=== PATIENT | male | born 1960 | race American Indian/Alaskan Native ===

== ENCOUNTER 2016-06-12 12:05 | Emergency (ER) | payer SELFPAY ==
[2016-06-12 12:14] VITALS: BP 139/87
--- NOTE | 2016-06-12 12:35 | EDM.PDOC ---
ED HPI Behavioral Health - General Chief Complaint: Drug or Alcohol Abuse Stated Complaint: DRINKING Time Seen by Provider: 06/12/16 12:26 Source: Reports: Patient Exam Limitations: Reports: No limitations - History of Present Illness INITIAL COMMENTS - FREE TEXT/NARRATIVE: pt was drinking heavily in the past week. He drank a liter last nite and just had a sip this am. Onset of Symptoms: Reports: gradual Duration of Symptoms: Reports: Day(s): - Related Data Allergies Allergy/AdvReac Type Severity Reaction Status Date / Time No Known Allergies Allergy Verified 04/27/16 14:21 Home Medications: Home Meds Metoprolol Succinate [Toprol XL] 75 mg PO DAILY 11/18/15 [History] NIFEdipine [Nifedipine ER] 30 mg PO DAILY 11/18/15 [History] Ibuprofen 400 mg PO ASDIRECTED 03/03/16 [History] Past Medical History Cardiovascular History: Reports: Hypertension Musculoskeletal History: Reports: Fracture Neurological History: Reports: Neuropathy, peripheral Psychiatric History: Reports: Addiction, Depression - Infectious Disease History Infectious Disease History: Reports: Chicken pox, Mumps - Past Surgical History HEENT Surgical History: Reports: Tonsillectomy, Other (see below) Other HEENT Surgeries/Procedures: tooth extraction Musculoskeletal Surgical History: Reports: Arthroscopic knee, Other (see below) Other Musculoskeletal Surgeries/Procedures:: left ankle surgery Social & Family History - Tobacco Use Smoking Status *Q: Unknown Ever Smoked Years of Tobacco use: 39 Packs/Tins Daily: 0.5 Used Tobacco, but Quit: No Second Hand Smoke Exposure: Yes - Caffeine Use Caffeine Use: Reports: Soda - Alcohol Use Days Per Week of Alcohol Use: 4 Number of Drinks Per Day: 10 Total Drinks Per Week: 40 - Recreational Drug Use Recreational Drug Use: No Drug Use in Last 12 Months: Yes Recreational Drug Type: Reports: Marijuana/Hashish, Methamphetamine Recreational Drug Use Frequency: Weekly ED ROS GENERAL - Review of Systems Review Of Systems: See Below Constitutional: Reports: no symptoms HEENT: Reports: No symptoms Respiratory: Reports: no symptoms Cardiovascular: Reports: No symptoms Endocrine: Reports: no symptoms GI/Abdominal: Reports: No symptoms, Nausea, Other (pt has been drinking heavily) : Reports: no symptoms Musculoskeletal: Reports: no symptoms Skin: Reports: no symptoms Neurological: Reports: no symptoms Psychiatric: Reports: Anxiety, Other (pt has lost alot of friends and family this past year. ) ED EXAM, BEHAVIORAL HEALTH - Physical Exam Exam: See Below Text/Narrative:: pt is not appearing intoxicated. He is able to give a good history. He has been drinking heavily and wants to go into treatment. Exam Limited By: No limitations General Appearance: alert, no apparent distress Ears: normal TMs Nose: normal inspection Throat/Mouth: Normal inspection Head: atraumatic Neck: normal inspection Respiratory/Chest: no respiratory distress Cardiovascular: regular rate, rhythm GI/Abdominal: soft, non tender Rectal (Males) Exam: Deferred Back Exam: normal inspection Neurological: alert, normal cognition Psychiatric: other (pt has had alot of losses and may be having paul depression. ) COURSE, BEHAVIORAL HEALTH COMP - Course Vital Signs: Last Vital Signs Temp 36.5 C 06/12/16 12:14 Pulse 114 H 06/12/16 12:14 Resp 16 06/12/16 12:14 BP 139/87 06/12/16 12:14 Pulse Ox 96 06/12/16 12:14 Orders, Labs, Meds: Active Orders 24 hr Category Date Time Status COMPREHENSIVE METABOLIC PN,CMP [CHEM] Urgent Lab 06/12/16 12:34 Received ETOH [ETHANOL BLOOD MEDICAL] [CHEM] Stat Lab 06/12/16 12:34 Received Laboratory Tests 06/12/16 06/12/16 06/12/16 Range/Units 12:34 13:09 13:09 WBC 9.2 (4.5-11.0) K/uL RBC 5.00 (4.30-5.90) M/uL Hgb 17.1 H (12.0-15.0) g/dL Hct 46.8 (40.0-54.0) % MCV 94 (80-98) fL MCH 34 H (27-31) pg MCHC 37 H (32-36) % Plt Count 189 (150-400) K/uL Neut % (Auto) 72 H (36-66) % Lymph % (Auto) 13 L (24-44) % [place] % (Auto) 14 H (2-6) % Eos % (Auto) 0 L (2-4) % Baso % (Auto) 1 (0-1) % Urine Color Yellow Urine Appearance Clear Urine pH 6.0 (4.5-8.0) Ur Specific [place] 1.015 (1.008-1.030) Urine Protein Negative (NEGATIVE) mg/dL Urine Glucose (UA) Normal (NEGATIVE) mg/dL Urine Ketones Negative (NEGATIVE) mg/dL Urine Occult Blood Negative (NEGATIVE) Urine Nitrite Negative (NEGAITVE) Urine Bilirubin Negative (NEGATIVE) Urine Urobilinogen Normal (NORMAL) mg/dL Ur Leukocyte Esterase Negative (NEGATIVE) Urine RBC 0-5 (0-5) Urine WBC Not seen (0-5) Ur Epithelial Cells Not seen Amorphous Sediment Rare Urine Bacteria Not seen Urine Mucus Rare Urine Opiates Screen Negative (NEGATIVE) Ur Oxycodone Screen Negative (NEGATIVE) Urine Methadone Screen Negative (NEGATIVE) Ur Propoxyphene Screen Negative (NEGATIVE) Ur Barbiturates Screen Negative (NEGATIVE) Ur Tricyclics Screen Negative (NEGATIVE) Ur Phencyclidine Scrn Negative (NEGATIVE) Ur Amphetamine Screen Negative (NEGATIVE) U Methamphetamines Scrn Negative (NEGATIVE) Urine MDMA Screen Negative (NEGATIVE) U Benzodiazepines Scrn Positive H (NEGATIVE) U Cocaine Metab Screen Negative (NEGATIVE) U Marijuana (THC) Screen Negative (NEGATIVE) Medications Discontinued Medications Generic Name Dose Route Start Last Admin Trade Name Freq PRN Reason Stop Dose Admin Lorazepam 1 mg 06/12/16 13:31 Ativan PO 06/12/16 13:32 ONETIME ONE Medical Clearance: 06/12/16 13:39 pt has a normal set of chemistries. His cbc is good. Liver enzymes are up mildly. Departure - Departure Time of Disposition: 13:40 Disposition: DC/Tfer to Psych Hosp/Unit 65 Condition: fair Clinical Impression: ETOH abuse Forms: ED Department Discharge Care Plan Goals: transfer to Detox at [place]. - My Orders Last 24 Hours: My Active Orders 06/12/16 12:34 COMPREHENSIVE METABOLIC PN,CMP [CHEM] Urgent ETOH [ETHANOL BLOOD MEDICAL] [CHEM] Stat - Assessment/Plan Last 24 Hours: My Active Orders 06/12/16 12:34 COMPREHENSIVE METABOLIC PN,CMP [CHEM] Urgent ETOH [ETHANOL BLOOD MEDICAL] [CHEM] Stat
[2016-06-12] MEDS ORDERED: LORazepam 1 MG Tab PO ONE (13:31)
== END 2016-06-12 14:20 ==
LOC: JP.ED 12:05
DX: F10.10 Alcohol abuse, uncomplicated (principal); I10 Essential (primary) hypertension; F32.9 Major depressive disorder, single episode, unspecified; Z98.890 Other specified postprocedural states
CPT/HCPCS: 36415; 80053; 80305; 81001; 85025; 99285; A9270; G0480; 99283

== ENCOUNTER 2016-10-19 01:59 | Emergency (ER) | payer SELFPAY ==
[2016-10-19 02:17] VITALS: BP 138/92
--- NOTE | 2016-10-19 03:43 | EDM.PDOC ---
ED HPI GENERAL MEDICAL PROBLEM - General Chief Complaint: Behavioral/Psych Stated Complaint: DETOX Time Seen by Provider: 10/19/16 03:40 Source of Information: Reports: Patient, RN Notes Reviewed History Limitations: Reports: No Limitations - History of Present Illness INITIAL COMMENTS - FREE TEXT/NARRATIVE: 56-year-old gentleman presents emergency department today requesting to go to [facility] facility has no complaints denies pain Pain Score (Numeric/FACES): 0 - Related Data Allergies Allergy/AdvReac Type Severity Reaction Status Date / Time No Known Allergies Allergy Verified 10/19/16 02:36 Home Meds: Home Meds Metoprolol Succinate [Toprol XL] 75 mg PO DAILY 11/18/15 [History] NIFEdipine [Nifedipine ER] 30 mg PO DAILY 11/18/15 [History] Ibuprofen 400 mg PO ASDIRECTED 03/03/16 [History] Past Medical History HEENT History: Reports: Impaired Vision Cardiovascular History: Reports: Hypertension Musculoskeletal History: Reports: Arthritis Neurological History: Reports: Neuropathy, Peripheral Psychiatric History: Reports: Addiction, Depression, Other (See Below) Other Psychiatric History: Alcohol addiction - Infectious Disease History Infectious Disease History: Reports: Chicken Pox, Mumps - Past Surgical History HEENT Surgical History: Reports: Tonsillectomy Musculoskeletal Surgical History: Reports: Arthroscopic Knee Social & Family History - Tobacco Use Smoking Status *Q: Current Every Day Smoker Years of Tobacco use: 14 Packs/Tins Daily: 0.5 Used Tobacco, but Quit: No Second Hand Smoke Exposure: Yes - Caffeine Use Caffeine Use: Reports: Coffee, Tea - Alcohol Use Days Per Week of Alcohol Use: 4 Number of Drinks Per Day: 10 Total Drinks Per Week: 40 - Recreational Drug Use Recreational Drug Use: No Drug Use in Last 12 Months: Yes Recreational Drug Type: Reports: Marijuana/Hashish, Methamphetamine Recreational Drug Use Frequency: Weekly ED ROS GENERAL - Review of Systems Review Of Systems: See Below Constitutional: Reports: No Symptoms Respiratory: Reports: No Symptoms Cardiovascular: Reports: No Symptoms GI/Abdominal: Reports: No Symptoms ED EXAM, GENERAL - Physical Exam Exam: See Below Exam Limited By: No Limitations General Appearance: Alert, WD/WN, No Apparent Distress Head: Atraumatic, Normocephalic Neck: Normal Inspection, Supple, Non-Tender, Full Range of Motion Respiratory/Chest: No Respiratory Distress, Lungs Clear, Normal Breath Sounds, No Accessory Muscle Use, Chest Non-Tender Cardiovascular: Regular Rate, Rhythm, No Murmur Course - Vital Signs Last Recorded V/S: Last Vital Signs Temp 98.1 F 10/19/16 02:15 Pulse 84 10/19/16 02:15 Resp 18 10/19/16 02:15 BP 138/92 H 10/19/16 02:15 Pulse Ox 99 10/19/16 02:15 - Orders/Labs/Meds Labs: Laboratory Tests 10/19/16 10/19/16 10/19/16 Range/Units 02:19 02:19 02:19 WBC 10.2 (4.5-11.0) K/uL RBC 5.24 (4.30-5.90) M/uL Hgb 17.4 H (12.0-15.0) g/dL Hct 48.6 (40.0-54.0) % MCV 93 (80-98) fL MCH 33 H (27-31) pg MCHC 36 (32-36) % Plt Count 292 (150-400) K/uL Neut % (Auto) 66 (36-66) % Lymph % (Auto) 21 L (24-44) % [place] % (Auto) 10 H (2-6) % Eos % (Auto) 1 L (2-4) % Baso % (Auto) 2 H (0-1) % Sodium 144 (140-148) mmol/L Potassium 3.6 (3.6-5.2) mmol/L Chloride 108 (100-108) mmol/L Carbon Dioxide 24 (21-32) mmol/L Anion Gap 11.8 (5.0-14.0) mmol/L BUN 11 (7-18) mg/dL Creatinine 1.2 (0.8-1.3) mg/dL Est Cr Clr Drug Dosing 65.71 mL/min Estimated GFR (MDRD) > 60 (>60) Glucose 112 H (74-106) mg/dL Calcium 8.5 (8.5-10.1) mg/dL Total Bilirubin 0.3 (0.2-1.0) mg/dL AST 15 (15-37) U/L ALT 25 (12-78) U/L Alkaline Phosphatase 97 (46-116) U/L Total Protein 7.7 (6.4-8.2) g/dL Albumin 3.6 (3.4-5.0) g/dL Globulin 4.1 H (2.3-3.5) g/dL Albumin/Globulin Ratio 0.9 L (1.2-2.2) Urine Color Urine Appearance Urine pH (4.5-8.0) Ur Specific [place] (1.008-1.030) Urine Protein (NEGATIVE) mg/dL Urine Glucose (UA) (NEGATIVE) mg/dL Urine Ketones (NEGATIVE) mg/dL Urine Occult Blood (NEGATIVE) Urine Nitrite (NEGAITVE) Urine Bilirubin (NEGATIVE) Urine Urobilinogen (NORMAL) mg/dL Ur Leukocyte Esterase (NEGATIVE) Urine RBC (0-5) Urine WBC (0-5) Ur Epithelial Cells Amorphous Sediment Urine Bacteria Urine Mucus Urine Opiates Screen (NEGATIVE) Ur Oxycodone Screen (NEGATIVE) Urine Methadone Screen (NEGATIVE) Ur Propoxyphene Screen (NEGATIVE) Ur Barbiturates Screen (NEGATIVE) Ur Tricyclics Screen (NEGATIVE) Ur Phencyclidine Scrn (NEGATIVE) Ur Amphetamine Screen (NEGATIVE) U Methamphetamines Scrn (NEGATIVE) Urine MDMA Screen (NEGATIVE) U Benzodiazepines Scrn (NEGATIVE) U Cocaine Metab Screen (NEGATIVE) U Marijuana (THC) Screen (NEGATIVE) Ethyl Alcohol 166 mg/dL 10/19/16 10/19/16 Range/Units 03:09 03:09 WBC (4.5-11.0) K/uL RBC (4.30-5.90) M/uL Hgb (12.0-15.0) g/dL Hct (40.0-54.0) % MCV (80-98) fL MCH (27-31) pg MCHC (32-36) % Plt Count (150-400) K/uL Neut % (Auto) (36-66) % Lymph % (Auto) (24-44) % [place] % (Auto) (2-6) % Eos % (Auto) (2-4) % Baso % (Auto) (0-1) % Sodium (140-148) mmol/L Potassium (3.6-5.2) mmol/L Chloride (100-108) mmol/L Carbon Dioxide (21-32) mmol/L Anion Gap (5.0-14.0) mmol/L BUN (7-18) mg/dL Creatinine (0.8-1.3) mg/dL Est Cr Clr Drug Dosing mL/min Estimated GFR (MDRD) (>60) Glucose (74-106) mg/dL Calcium (8.5-10.1) mg/dL Total Bilirubin (0.2-1.0) mg/dL AST (15-37) U/L ALT (12-78) U/L Alkaline Phosphatase (46-116) U/L Total Protein (6.4-8.2) g/dL Albumin (3.4-5.0) g/dL Globulin (2.3-3.5) g/dL Albumin/Globulin Ratio (1.2-2.2) Urine Color Yellow Urine Appearance Clear Urine pH 5.0 (4.5-8.0) Ur Specific [place] 1.020 (1.008-1.030) Urine Protein 30 H (NEGATIVE) mg/dL Urine Glucose (UA) Normal (NEGATIVE) mg/dL Urine Ketones Negative (NEGATIVE) mg/dL Urine Occult Blood Negative (NEGATIVE) Urine Nitrite Negative (NEGAITVE) Urine Bilirubin Negative (NEGATIVE) Urine Urobilinogen Normal (NORMAL) mg/dL Ur Leukocyte Esterase Negative (NEGATIVE) Urine RBC 0-5 (0-5) Urine WBC 0-5 (0-5) Ur Epithelial Cells Few Amorphous Sediment Not seen Urine Bacteria Few Urine Mucus Not seen Urine Opiates Screen Negative (NEGATIVE) Ur Oxycodone Screen Negative (NEGATIVE) Urine Methadone Screen Negative (NEGATIVE) Ur Propoxyphene Screen Negative (NEGATIVE) Ur Barbiturates Screen Negative (NEGATIVE) Ur Tricyclics Screen Negative (NEGATIVE) Ur Phencyclidine Scrn Negative (NEGATIVE) Ur Amphetamine Screen Negative (NEGATIVE) U Methamphetamines Scrn Negative (NEGATIVE) Urine MDMA Screen Negative (NEGATIVE) U Benzodiazepines Scrn Negative (NEGATIVE) U Cocaine Metab Screen Negative (NEGATIVE) U Marijuana (THC) Screen Negative (NEGATIVE) Ethyl Alcohol mg/dL Departure - Departure Time of Disposition: 03:42 ( perfect) Disposition: DC/Tfer to Inpt Rehab Fac 62 Condition: Fair Clinical Impression: Alcohol use disorder - Discharge Information Forms: ED Department Discharge Additional Instructions: Please refrain from alcohol - Assessment/Plan Plan: Assessment Acuity = acute Site and laterality = alcohol intoxication Etiology = alcohol consumption Manifestations = none CBC, CMP within normal limits alcohol is 166 Location of injury = Home Lab values = [lists important lab values] Plan We'll contact [facility] and they can pick him up for further evaluation and detoxification Patient was in agreement with the plan all questions were answered, they were instructed to return to the emergency department or call for worsening symptoms. This note was dictated using [employer] voice recognition software please call with any questions.
== END 2016-10-19 04:34 ==
LOC: JP.ED 01:59
DX: F10.10 Alcohol abuse, uncomplicated (principal); H54.7 Unspecified visual loss; F17.210 Nicotine dependence, cigarettes, uncomplicated; I10 Essential (primary) hypertension; M19.90 Unspecified osteoarthritis, unspecified site; Z79.899 Other long term (current) drug therapy; Z98.890 Other specified postprocedural states
CPT/HCPCS: 36415; 80053; 80305; 81001; 85025; 99285; G0480; 99284

== ENCOUNTER 2017-03-24 10:05 | Emergency (ER) | payer SELFPAY ==
[2017-03-24] MEDS ORDERED: NIFEdipine 30 MG Tab.ER PO ONE (10:22)
--- NOTE | 2017-03-24 10:37 | EDM.PDOCBH ---
ED HPI GENERAL MEDICAL PROBLEM - General Chief Complaint: Drug or Alcohol Abuse Stated Complaint: MEDICAL [facility]IA [facility] Time Seen by Provider: 03/24/17 10:15 Source of Information: Reports: Patient, EMS History Limitations: Reports: No Limitations - History of Present Illness INITIAL COMMENTS - FREE TEXT/NARRATIVE: 56-year-old male with chronic alcoholism arrives by ambulance wanting to go to detox. He's been drinking for several days, drank this morning and thought he might of taken an extra metoprolol. He felt like he was going into "withdrawals " this morning so drank some vodka. The detox center does have a bed available, the patient called himself and they sent him in here for medical clearance. He has not had any emesis, fever, shortness of breath or chest pain. Onset: Unknown/Unsure Severity: Mild - Related Data Allergies Allergy/AdvReac Type Severity Reaction Status Date / Time No Known Allergies Allergy Verified 03/24/17 10:17 Home Meds: Home Meds Metoprolol Succinate [Toprol XL] 75 mg PO DAILY 11/18/15 [History] NIFEdipine [Nifedipine ER] 30 mg PO DAILY 11/18/15 [History] Ibuprofen 400 mg PO ASDIRECTED 03/03/16 [History] Past Medical History HEENT History: Reports: Impaired Vision Cardiovascular History: Reports: Hypertension Musculoskeletal History: Reports: Arthritis, Fracture Neurological History: Reports: Neuropathy, Peripheral Psychiatric History: Reports: Addiction, Depression Other Psychiatric History: Alcohol addiction - Infectious Disease History Infectious Disease History: Reports: Chicken Pox, Mumps - Past Surgical History HEENT Surgical History: Reports: Tonsillectomy Musculoskeletal Surgical History: Reports: Arthroscopic Knee, ORIF, Other (See Below) Other Musculoskeletal Surgeries/Procedures:: ORIF left ankle Social & Family History - Tobacco Use Smoking Status *Q: Heavy Tobacco Smoker Years of Tobacco use: 43 Packs/Tins Daily: 1 Used Tobacco, but Quit: No Second Hand Smoke Exposure: Yes - Caffeine Use Caffeine Use: Reports: Coffee, Tea - Alcohol Use Days Per Week of Alcohol Use: 4 Number of Drinks Per Day: 8 Total Drinks Per Week: 32 - Recreational Drug Use Recreational Drug Use: No Drug Use in Last 12 Months: Yes Recreational Drug Type: Reports: Marijuana/Hashish, Methamphetamine Recreational Drug Use Frequency: Weekly ED ROS GENERAL - Review of Systems Review Of Systems: See Below Constitutional: Reports: Malaise. Denies: Fever, Chills Respiratory: Denies: Shortness of Breath Cardiovascular: Denies: Chest Pain GI/Abdominal: Denies: Abdominal Pain, Nausea, Vomiting Skin: Reports: No Symptoms Neurological: Denies: Headache ED EXAM, BEHAVIORAL HEALTH - Physical Exam Exam: See Below Exam Limited By: No Limitations General Appearance: Alert, No Apparent Distress Eye Exam: Bilateral Eye: EOMI Respiratory/Chest: No Respiratory Distress, Lungs Clear Cardiovascular: Regular Rate, Rhythm GI/Abdominal: Non-Tender Extremities: No: Pedal Edema Neurological: Alert, Oriented x 3 Psychiatric: Alert, Normal Affect Skin Exam: Warm, Dry COURSE, BEHAVIORAL HEALTH COMP - Course Vital Signs: Last Vital Signs Temp 97.8 F 03/24/17 10:09 Pulse 72 03/24/17 11:10 Resp 16 03/24/17 11:10 BP 182/99 H 03/24/17 11:10 Pulse Ox 94 L 03/24/17 10:09 Orders, Labs, Meds: Laboratory Tests 03/24/17 03/24/17 03/24/17 Range/Units 10:30 10:30 10:30 WBC 9.3 (4.5-11.0) K/uL RBC 4.91 (4.30-5.90) M/uL Hgb 16.1 H (12.0-15.0) g/dL Hct 45.2 (40.0-54.0) % MCV 92 (80-98) fL MCH 33 H (27-31) pg MCHC 36 (32-36) % Plt Count 228 (150-400) K/uL Neut % (Auto) 81 H (36-66) % Lymph % (Auto) 10 L (24-44) % [place] % (Auto) 8 H (2-6) % Eos % (Auto) 0 L (2-4) % Baso % (Auto) 1 (0-1) % Sodium 145 (140-148) mmol/L Potassium 4.1 (3.6-5.2) mmol/L Chloride 107 (100-108) mmol/L Carbon Dioxide 25 (21-32) mmol/L Anion Gap 12.9 (5.0-14.0) mmol/L BUN 21 H D (7-18) mg/dL Creatinine 1.3 (0.8-1.3) mg/dL Est Cr Clr Drug Dosing 60.65 mL/min Estimated GFR (MDRD) 57 L (>60) Glucose 107 H (74-106) mg/dL Calcium 9.1 (8.5-10.1) mg/dL Ethyl Alcohol 95 mg/dL Medications Discontinued Medications Generic Name Dose Route Start Last Admin Trade Name Freq PRN Reason Stop Dose Admin Nifedipine 30 mg 03/24/17 10:22 03/24/17 10:46 Procardia Xl PO 03/24/17 10:23 30 mg ONETIME ONE Administration Re-Assessment/Re-Exam: CBC, BMP and EtOH were obtained. Blood pressure was elevated at 150/120, patient was given his nifedipine dose that he missed this morning. EtOH was 0.095, the rest of his labs are reassuring. Patient was discharged with transportation provided by [facility]. Departure - Departure Time of Disposition: 11:21 Disposition: DC/Tfer to Other 70 Condition: Fair Clinical Impression: Alcohol abuse - Discharge Information Instructions: Alcohol Use Disorder Referrals: PCP,None [Primary Care Provider] - Forms: ED Department Discharge Care Plan Goals: Patient will be transferred by private car to [facility] for detox, hopefully will continue treatment long-term.
[2017-03-24 11:21] VITALS: BP 182/99
== END 2017-03-24 11:50 | disposition other institution (70) ==
LOC: JP.ED 10:05
DX: F10.10 Alcohol abuse, uncomplicated (principal); F17.210 Nicotine dependence, cigarettes, uncomplicated; Z79.899 Other long term (current) drug therapy; Y90.0 Blood alcohol level of less than 20 mg/100 ml
CPT/HCPCS: 36415; 80048; 85025; 99284; A9270; G0480

== ENCOUNTER 2019-08-23 13:13 | Emergency (ER) | payer MEDICAID ==
[2019-08-23 13:15] VITALS: BP 154/104; PULSE 85
--- NOTE | 2019-08-23 13:49 | EDM.PDOCBH ---
ED HPI GENERAL MEDICAL PROBLEM - General Chief Complaint: Drug or Alcohol Abuse Stated Complaint: VIA AM Time Seen by Provider: 08/23/19 13:48 Source of Information: Reports: Patient History Limitations: Reports: No Limitations - History of Present Illness INITIAL COMMENTS - FREE TEXT/NARRATIVE: He has been having shakes and feels that he is going through alcohol withdrawal. The patient drinks daily. States because he had the shakes and he thought he was going through withdrawal he drank 4 x 16 ounce beers prior to arrival. Any history of seizure disorder or withdrawal seizures. States he has been through alcohol treatment and detoxification multiple times. He thinks he had blood in his stool a month ago but otherwise denies having any history of peptic ulcer disease or varices. Denies any history of hepatic disease. Onset: Today Duration: Chronic - Related Data Allergies Allergy/AdvReac Type Severity Reaction Status Date / Time No Known Allergies Allergy Verified 03/24/17 10:17 Home Meds: Home Meds Metoprolol Succinate [Toprol XL] 50 mg PO DAILY 11/18/15 [History] Ibuprofen 400 mg PO ASDIRECTED 03/03/16 [History] Clopidogrel [Plavix] 75 mg PO DAILY 08/23/19 [History] LORazepam [Ativan] 1 mg PO Q6H 2 Days #8 tab 08/23/19 [Rx] atorvaSTATin [Lipitor] 40 mg PO DAILY 08/23/19 [History] lisinopriL [Lisinopril] 40 mg PO DAILY 08/23/19 [History] Past Medical History HEENT History: Reports: Impaired Vision Cardiovascular History: Reports: Hypertension, [place] Musculoskeletal History: Reports: Arthritis, Fracture Neurological History: Reports: Neuropathy, Peripheral Psychiatric History: Reports: Addiction, Depression Other Psychiatric History: Alcohol addiction - Infectious Disease History Infectious Disease History: Reports: Chicken Pox, Mumps - Past Surgical History HEENT Surgical History: Reports: Tonsillectomy Musculoskeletal Surgical History: Reports: Arthroscopic Knee, ORIF, Other (See Below) Other Musculoskeletal Surgeries/Procedures:: ORIF left ankle Social & Family History - Caffeine Use Caffeine Use: Reports: Coffee, Tea - Alcohol Use Alcohol Use History: Yes Alcohol Use Comment: He was evaluated in the emergency department in [facility] 08/19/2019 after being found lying by the side of the road. At that time he had a blood pressure of 58/46, blood alcohol level 281, and a lactic acid of 2.5. At that time the patient told emergency room staff he drinks " what ever he can get, all day ". Discharge diagnosis from that emergency department stay: Alcohol abuse, dehydration, hypotension due to hypovolemia, and chronic kidney disease. ED ROS GENERAL - Review of Systems Review Of Systems: See Below Constitutional: Reports: Malaise. Denies: Fever Respiratory: Denies: Shortness of Breath GI/Abdominal: Denies: Abdominal Pain Musculoskeletal: Reports: No Symptoms Neurological: Reports: Tremors Hematologic/Lymphatic: Reports: No Symptoms ED EXAM, BEHAVIORAL HEALTH - Physical Exam Exam: See Below Exam Limited By: Altered Mental Status General Appearance: Alert, No Apparent Distress Ears: Normal External Exam Nose: Normal Inspection Throat/Mouth: Other (Dry Mucous membranes) Neck: Supple Respiratory/Chest: No Respiratory Distress, Lungs Clear Cardiovascular: Normal Peripheral Pulses, Regular Rate, Rhythm GI/Abdominal: Non-Tender, No Organomegaly, Distended Extremities: Normal Inspection Neurological: Alert, No Motor/Sensory Deficits EKG INTERPRETATION EKG Date: 08/23/19 Time: 13:55 Rhythm: NSR Rate (Beats/Min): 79 QRS: Wide ST-T: Normal Comparison: Other: COURSE, BEHAVIORAL HEALTH COMP - Course Vital Signs: Last Vital Signs Temp 36.2 C 08/23/19 13:17 Pulse 85 08/23/19 13:17 Resp 16 08/23/19 13:17 BP 154/104 H 08/23/19 13:17 Pulse Ox 94 L 08/23/19 13:17 Orders, Labs, Meds: Active Orders 24 hr Category Date Time Status EKG Documentation Completion [RC] ASDIRECTED Care 08/23/19 13:59 Active DRUG SCREEN, URINE [URCHEM] Urgent Lab 08/23/19 13:58 Ordered UA W/MICROSCOPIC [URIN] Urgent Lab 08/23/19 13:58 Ordered EKG 12 Lead [EK] Stat Ther 08/23/19 13:58 Ordered Laboratory Tests 08/23/19 08/23/19 08/23/19 Range/Units 14:06 14:06 14:06 WBC 5.6 (4.5-11.0) K/uL RBC 4.51 (4.30-5.90) M/uL Hgb 14.0 D (12.0-15.0) g/dL Hct 41.5 (40.0-54.0) % MCV 92 (80-98) fL MCH 31 (27-31) pg MCHC 34 (32-36) % Plt Count 224 (150-400) K/uL PT 10.5 (9.5-12.0) sec INR 0.97 (0.80-1.20) Sodium 143 (140-148) mmol/L Potassium 4.1 (3.6-5.2) mmol/L Chloride 107 (100-108) mmol/L Carbon Dioxide 24 (21-32) mmol/L Anion Gap 11.6 (5.0-14.0) mmol/L BUN 9 D (7-18) mg/dL Creatinine 1.1 (0.8-1.3) mg/dL Est Cr Clr Drug Dosing 69.09 mL/min Estimated GFR (MDRD) > 60 (>60) Glucose 95 (74-106) mg/dL Calcium 8.8 (8.5-10.1) mg/dL Total Bilirubin 0.5 D (0.2-1.0) mg/dL AST 45 H D (15-37) U/L ALT 65 D (12-78) U/L Alkaline Phosphatase 80 (46-116) U/L Troponin I < 0.017 (0.000-0.056) ng/mL Total Protein 7.1 (6.4-8.2) g/dL Albumin 3.9 (3.4-5.0) g/dL Globulin 3.2 (2.3-3.5) g/dL Albumin/Globulin Ratio 1.2 (1.2-2.2) Ethyl Alcohol mg/dL 08/23/19 Range/Units 14:06 WBC (4.5-11.0) K/uL RBC (4.30-5.90) M/uL Hgb (12.0-15.0) g/dL Hct (40.0-54.0) % MCV (80-98) fL MCH (27-31) pg MCHC (32-36) % Plt Count (150-400) K/uL PT (9.5-12.0) sec INR (0.80-1.20) Sodium (140-148) mmol/L Potassium (3.6-5.2) mmol/L Chloride (100-108) mmol/L Carbon Dioxide (21-32) mmol/L Anion Gap (5.0-14.0) mmol/L BUN (7-18) mg/dL Creatinine (0.8-1.3) mg/dL Est Cr Clr Drug Dosing mL/min Estimated GFR (MDRD) (>60) Glucose (74-106) mg/dL Calcium (8.5-10.1) mg/dL Total Bilirubin (0.2-1.0) mg/dL AST (15-37) U/L ALT (12-78) U/L Alkaline Phosphatase (46-116) U/L Troponin I (0.000-0.056) ng/mL Total Protein (6.4-8.2) g/dL Albumin (3.4-5.0) g/dL Globulin (2.3-3.5) g/dL Albumin/Globulin Ratio (1.2-2.2) Ethyl Alcohol 116 mg/dL Departure - Departure Time of Disposition: 15:07 Disposition: Home, Self-Care 01 Clinical Impression: Alcohol withdrawal syndrome - Discharge Information Prescriptions: LORazepam [Ativan] 1 mg PO Q6H 2 Days #8 tab Instructions: Alcohol Withdrawal Syndrome Referrals: PCP,None [Primary Care Provider] - Forms: ED Department Discharge Additional Instructions: Lyse Ativan every 6 hours as needed for tremors Sepsis Event Note - Evaluation Sepsis Screening Result: No Definite Risk - Focused Exam Vital Signs: Vital Signs Temp Pulse Resp BP Pulse Ox 08/23/19 13:17 36.2 C 85 16 154/104 H 94 L 08/23/19 13:14 36.2 C 85 16 154/104 H 94 L Date Exam was Performed: 08/23/19 Time Exam was Performed: 15:07 - My Orders Last 24 Hours: My Active Orders 08/23/19 13:58 DRUG SCREEN, URINE [URCHEM] Urgent UA W/MICROSCOPIC [URIN] Urgent EKG 12 Lead [EK] Stat 08/23/19 13:59 EKG Documentation Completion [RC] ASDIRECTED - Assessment/Plan Last 24 Hours: My Active Orders 08/23/19 13:58 DRUG SCREEN, URINE [URCHEM] Urgent UA W/MICROSCOPIC [URIN] Urgent EKG 12 Lead [EK] Stat 08/23/19 13:59 EKG Documentation Completion [RC] ASDIRECTED
== END 2019-08-23 15:17 | disposition home or self-care (01) ==
LOC: JP.ED 13:13
DX: F10.239 Alcohol dependence with withdrawal, unspecified (principal); Y90.5 Blood alcohol level of 100-119 mg/100 ml; I10 Essential (primary) hypertension; I25.2 Old myocardial infarction; M19.90 Unspecified osteoarthritis, unspecified site; Z79.899 Other long term (current) drug therapy; Z79.02 Long term (current) use of antithrombotics/antiplatelets
CPT/HCPCS: 36415; 80053; 80307; 84484; 85027; 85610; 93005; 99285-25

== ENCOUNTER 2019-09-02 12:26 | Emergency (ER) | payer MEDICAID ==
[2019-09-02 12:36] VITALS: BP 152/98; PULSE 87
--- NOTE | 2019-09-02 12:44 | EDM.PDOCBH ---
ED HPI GENERAL MEDICAL PROBLEM - General Chief Complaint: Drug or Alcohol Abuse Stated Complaint: BEEN DRINKING Time Seen by Provider: 09/02/19 12:30 Source of Information: Reports: Patient, EMS History Limitations: Reports: No Limitations - History of Present Illness INITIAL COMMENTS - FREE TEXT/NARRATIVE: 59-year-old male chronic alcoholic, has been to detox and treatment several times just in the last month, returns again after having his last drink just 1 hour ago. Comes in by ambulance because he thinks he is going through withdrawal, has anxiety and depression, and wants to be readmitted for detox. Denies any pain or vomiting. Onset: Unknown/Unsure Associated Symptoms: Reports: Malaise, Other (Feels shaky, depressed and anxious ) - Related Data Allergies Allergy/AdvReac Type Severity Reaction Status Date / Time No Known Allergies Allergy Verified 09/02/19 12:34 Home Meds: Home Meds Metoprolol Succinate [Toprol XL] 50 mg PO DAILY 11/18/15 [History] Ibuprofen 400 mg PO ASDIRECTED 03/03/16 [History] Clopidogrel [Plavix] 75 mg PO DAILY 08/23/19 [History] LORazepam [Ativan] 1 mg PO Q6H 2 Days #8 tab 08/23/19 [Rx] atorvaSTATin [Lipitor] 40 mg PO DAILY 08/23/19 [History] lisinopriL [Lisinopril] 40 mg PO DAILY 08/23/19 [History] Past Medical History HEENT History: Reports: Impaired Vision Cardiovascular History: Reports: Hypertension, [place] Musculoskeletal History: Reports: Arthritis, Fracture Neurological History: Reports: Neuropathy, Peripheral Psychiatric History: Reports: Addiction, Depression Other Psychiatric History: Alcohol addiction - Infectious Disease History Infectious Disease History: Reports: Chicken Pox, Mumps - Past Surgical History HEENT Surgical History: Reports: Tonsillectomy Cardiovascular Surgical History: Reports: None Neurological Surgical History: Reports: None Musculoskeletal Surgical History: Reports: Arthroscopic Knee, ORIF, Other (See Below) Other Musculoskeletal Surgeries/Procedures:: ORIF left ankle Social & Family History - Tobacco Use Smoking Status *Q: Current Every Day Smoker Years of Tobacco use: 46 Packs/Tins Daily: 1 - Caffeine Use Caffeine Use: Reports: Coffee, Soda, Tea - Alcohol Use Days Per Week of Alcohol Use: 7 Number of Drinks Per Day: 20 Total Drinks Per Week: 140 - Recreational Drug Use Recreational Drug Use: No ED ROS GENERAL - Review of Systems Review Of Systems: See Below Constitutional: Reports: Malaise. Denies: Fever, Chills Respiratory: Denies: Shortness of Breath Cardiovascular: Denies: Chest Pain GI/Abdominal: Denies: Abdominal Pain, Nausea, Vomiting Skin: Reports: No Symptoms Neurological: Reports: Tremors. Denies: Headache Psychiatric: Reports: Anxiety, Depression ED EXAM, BEHAVIORAL HEALTH - Physical Exam Exam: See Below Exam Limited By: No Limitations General Appearance: Alert, No Apparent Distress, Other (Does not appear to be overly intoxicated) Eye Exam: Bilateral Eye: EOMI (No jaundice) Head: Atraumatic Respiratory/Chest: No Respiratory Distress, Lungs Clear Cardiovascular: Regular Rate, Rhythm Extremities: Normal Inspection. No: Pedal Edema Neurological: Alert, Oriented x 3 Psychiatric: Depressed Mood, Flat Affect Skin Exam: Warm, Dry COURSE, BEHAVIORAL HEALTH COMP - Course Vital Signs: Last Vital Signs Temp 96.8 F L 09/02/19 12:32 Pulse 87 09/02/19 12:32 Resp 16 09/02/19 12:32 BP 152/98 H 09/02/19 12:32 Pulse Ox 96 09/02/19 12:32 Orders, Labs, Meds: Laboratory Tests 09/02/19 Range/Units 12:54 Ethyl Alcohol < 3 mg/dL Re-Assessment/Re-Exam: IV fluids were initiated by EMS, these will be continued. EtOH was drawn for baseline prior to transferring to [place]. EtOH is 0, patient is stable for detox Departure - Departure Time of Disposition: 13:39 Disposition: DC/Tfer to Other 70 Clinical Impression: Alcohol abuse - Discharge Information Instructions: Alcohol Use Disorder Referrals: PCP,None [Primary Care Provider] - Forms: ED Department Discharge Care Plan Goals: Patient will be transferred to [place] for admission for symptom control of alcohol withdrawal. Sepsis Event Note - Evaluation Sepsis Screening Result: No Definite Risk - Focused Exam Vital Signs: Vital Signs Temp Pulse Resp BP Pulse Ox 09/02/19 12:32 96.8 F L 87 16 152/98 H 96 09/02/19 12:26 96.9 F 85 16 152/98 H 97 Date Exam was Performed: 09/02/19 Time Exam was Performed: 15:20
== END 2019-09-02 13:39 | disposition other institution (70) ==
LOC: JP.ED 12:26
DX: F10.10 Alcohol abuse, uncomplicated (principal); F32.9 Major depressive disorder, single episode, unspecified; I10 Essential (primary) hypertension; I25.2 Old myocardial infarction; F17.210 Nicotine dependence, cigarettes, uncomplicated; Z79.02 Long term (current) use of antithrombotics/antiplatelets; Z79.899 Other long term (current) drug therapy; Y90.0 Blood alcohol level of less than 20 mg/100 ml
CPT/HCPCS: 36415; 80307; 99285

== ENCOUNTER 2019-10-10 10:59 | Emergency (ER) | payer MEDICAID ==
[2019-10-10] MEDS ORDERED: Sodium Chloride 0.9% 10 ML Syringe FLUSH PRN (11:06)
[2019-10-10] MEDS ORDERED: LORazepam 2 MG/ML SDV IVPUSH ONE (11:06)
[2019-10-10] MEDS ORDERED: MVI, Adult with Vitamin K 10 ML, Thiamine 200 MG, Folic Acid 1 MG, Magnesium Sulfate 2 ... IV ONE ×10 (11:06→11:45)
[2019-10-10] MEDS ORDERED: Ondansetron 4 MG/2 ML SDV IVPUSH ONE (11:06)
--- NOTE | 2019-10-10 11:09 | EDM.PDOCBH ---
ED HPI GENERAL MEDICAL PROBLEM - General Chief Complaint: Drug or Alcohol Abuse Stated Complaint: ETOH Time Seen by Provider: 10/10/19 11:03 Source of Information: Reports: Patient, RN Notes Reviewed History Limitations: Reports: Intoxication - History of Present Illness INITIAL COMMENTS - FREE TEXT/NARRATIVE: 59-year-old gentleman presents emergency department today requesting alcohol detoxification, last use alcohol this morning combination whiskey and beer he does admit to feeling anxious and nauseated - Related Data Allergies Allergy/AdvReac Type Severity Reaction Status Date / Time No Known Allergies Allergy Verified 10/10/19 11:11 Home Meds: Home Meds Metoprolol Succinate [Toprol XL] 50 mg PO DAILY 11/18/15 [History] Clopidogrel [Plavix] 75 mg PO DAILY 08/23/19 [History] atorvaSTATin [Lipitor] 40 mg PO DAILY 08/23/19 [History] lisinopriL [Lisinopril] 40 mg PO DAILY 08/23/19 [History] Past Medical History HEENT History: Reports: Impaired Vision Cardiovascular History: Reports: CAD, Hypertension, [place] Musculoskeletal History: Reports: Arthritis, Fracture Neurological History: Reports: Neuropathy, Peripheral Psychiatric History: Reports: Addiction, Depression Other Psychiatric History: Alcohol addiction - Infectious Disease History Infectious Disease History: Reports: Chicken Pox, Mumps - Past Surgical History HEENT Surgical History: Reports: Tonsillectomy Cardiovascular Surgical History: Reports: None Neurological Surgical History: Reports: None Musculoskeletal Surgical History: Reports: Arthroscopic Knee, ORIF, Other (See Below) Other Musculoskeletal Surgeries/Procedures:: ORIF left ankle Social & Family History - Caffeine Use Caffeine Use: Reports: Coffee, Soda, Tea ED ROS GENERAL - Review of Systems Review Of Systems: See Below Constitutional: Reports: No Symptoms HEENT: Reports: No Symptoms Respiratory: Reports: No Symptoms Cardiovascular: Reports: No Symptoms GI/Abdominal: Reports: Nausea Psychiatric: Reports: Anxiety ED EXAM, BEHAVIORAL HEALTH - Physical Exam Exam: See Below Exam Limited By: Intoxication General Appearance: Alert, WD/WN, No Apparent Distress Respiratory/Chest: No Respiratory Distress, Lungs Clear, Normal Breath Sounds, No Accessory Muscle Use, Chest Non-Tender Cardiovascular: Regular Rate, Rhythm, No Murmur GI/Abdominal: Soft, Non-Tender COURSE, BEHAVIORAL HEALTH COMP - Course Vital Signs: Last Vital Signs Temp 97.4 F 10/10/19 11:13 Pulse 74 10/10/19 11:53 Resp 12 10/10/19 11:53 BP 141/100 H 10/10/19 11:53 Pulse Ox 99 10/10/19 11:53 Orders, Labs, Meds: Active Orders 24 hr Category Date Time Status Peripheral IV Care [RC] . DIRECTED Care 10/10/19 11:07 Active MVI, Adult with Vitamin K [Infuvite Adult] 10 ml Med 10/10/19 11:45 Active Thiamine [Vitamin B-1] 200 mg Folic Acid 1 mg Magnesium Sulfate [Magnesium Sulfate 50%] 2 gm Dextrose 5%-Lactated Ringers 1,000 ml IV ONETIME Sodium Chloride 0.9% [Saline Flush] Med 10/10/19 11:06 Active 10 ml FLUSH ASDIRECTED PRN Peripheral IV Insertion Adult [OM.PC] Urgent Oth 10/10/19 11:06 Ordered Medication Orders Multivitamins/Minerals 10 ml/Thiamine HCl 200 mg/ Folic Acid 1 mg/ Magnesium Luz lfate 2 gm/ Dextrose/Lactated Ringer' s 1,016.2 mls @ 500 mls/hr IV ONETIME ONE Stop: 10/10/19 13:46 Last Admin: 10/10/19 11:51 Dose: 500 mls/hr Documented by: BRAD Sodium Chloride (Saline Flush) 10 ml FLUSH ASDIRECTED PRN PRN Reason: Keep Vein Open Last Admin: 10/10/19 11:31 Dose: 10 ml Documented by: BRAD Laboratory Tests 10/10/19 10/10/19 10/10/19 Range/Units 11:23 11:23 11:23 WBC 10.3 (4.5-11.0) K/uL RBC 4.63 (4.30-5.90) M/uL Hgb 14.9 (12.0-15.0) g/dL Hct 44.0 (40.0-54.0) % MCV 95 (80-98) fL MCH 32 H (27-31) pg MCHC 34 (32-36) % Plt Count 220 (150-400) K/uL Neut % (Auto) 83 H (36-66) % Lymph % (Auto) 8 L (24-44) % Knox % (Auto) 8 H (2-6) % Eos % (Auto) 0 L (2-4) % Baso % (Auto) 1 (0-1) % PT (9.5-12.0) sec INR (0.80-1.20) Sodium 148 (140-148) mmol/L Potassium 4.3 (3.6-5.2) mmol/L Chloride 111 H (100-108) mmol/L Carbon Dioxide 22 (21-32) mmol/L Anion Gap 19.3 H (5.0-14.0) mmol/L BUN 9 (7-18) mg/dL Creatinine 1.1 (0.8-1.3) mg/dL Est Cr Clr Drug Dosing 69.09 mL/min Estimated GFR (MDRD) > 60 (>60) Glucose 107 H (74-106) mg/dL Calcium 8.4 L (8.5-10.1) mg/dL Total Bilirubin 0.6 (0.2-1.0) mg/dL AST 36 (15-37) U/L ALT 44 (12-78) U/L Alkaline Phosphatase 89 (46-116) U/L Total Protein 7.4 (6.4-8.2) g/dL Albumin 3.9 (3.4-5.0) g/dL Globulin 3.5 (2.3-3.5) g/dL Albumin/Globulin Ratio 1.1 L (1.2-2.2) Urine Opiates Screen (NEGATIVE) Ur Oxycodone Screen (NEGATIVE) Urine Methadone Screen (NEGATIVE) Ur Propoxyphene Screen (NEGATIVE) Ur Barbiturates Screen (NEGATIVE) Ur Tricyclics Screen (NEGATIVE) Ur Phencyclidine Scrn (NEGATIVE) Ur Amphetamine Screen (NEGATIVE) U Methamphetamines Scrn (NEGATIVE) Urine MDMA Screen (NEGATIVE) U Benzodiazepines Scrn (NEGATIVE) U Cocaine Metab Screen (NEGATIVE) U Marijuana (THC) Screen (NEGATIVE) Ethyl Alcohol 4 mg/dL 10/10/19 10/10/19 Range/Units 11:23 11:26 WBC (4.5-11.0) K/uL RBC (4.30-5.90) M/uL Hgb (12.0-15.0) g/dL Hct (40.0-54.0) % MCV (80-98) fL MCH (27-31) pg MCHC (32-36) % Plt Count (150-400) K/uL Neut % (Auto) (36-66) % Lymph % (Auto) (24-44) % Knox % (Auto) (2-6) % Eos % (Auto) (2-4) % Baso % (Auto) (0-1) % PT 11.4 (9.5-12.0) sec INR 1.06 (0.80-1.20) Sodium (140-148) mmol/L Potassium (3.6-5.2) mmol/L Chloride (100-108) mmol/L Carbon Dioxide (21-32) mmol/L Anion Gap (5.0-14.0) mmol/L BUN (7-18) mg/dL Creatinine (0.8-1.3) mg/dL Est Cr Clr Drug Dosing mL/min Estimated GFR (MDRD) (>60) Glucose (74-106) mg/dL Calcium (8.5-10.1) mg/dL Total Bilirubin (0.2-1.0) mg/dL AST (15-37) U/L ALT (12-78) U/L Alkaline Phosphatase (46-116) U/L Total Protein (6.4-8.2) g/dL Albumin (3.4-5.0) g/dL Globulin (2.3-3.5) g/dL Albumin/Globulin Ratio (1.2-2.2) Urine Opiates Screen Negative (NEGATIVE) Ur Oxycodone Screen Negative (NEGATIVE) Urine Methadone Screen Negative (NEGATIVE) Ur Propoxyphene Screen Negative (NEGATIVE) Ur Barbiturates Screen Negative (NEGATIVE) Ur Tricyclics Screen Negative (NEGATIVE) Ur Phencyclidine Scrn Negative (NEGATIVE) Ur Amphetamine Screen Negative (NEGATIVE) U Methamphetamines Scrn Negative (NEGATIVE) Urine MDMA Screen Negative (NEGATIVE) U Benzodiazepines Scrn Negative (NEGATIVE) U Cocaine Metab Screen Negative (NEGATIVE) U Marijuana (THC) Screen Negative (NEGATIVE) Ethyl Alcohol mg/dL Medications Generic Name Dose Route Start Last Admin Trade Name Freq PRN Reason Stop Dose Admin Multivitamins/Minerals 10 ml/ 1,016.2 mls @ 500 mls/hr 10/10/19 11:45 10/10/19 11:51 Thiamine HCl 200 mg/ Folic IV 10/10/19 13:46 500 mls/hr Acid 1 mg/ Magnesium Sulfate 2 ONETIME ONE Administration gm/ Dextrose/Lactated Ringer' s Sodium Chloride 10 ml 10/10/19 11:06 10/10/19 11:31 Saline Flush FLUSH 10 ml ASDIRECTED PRN Administration Keep Vein Open Discontinued Medications Generic Name Dose Route Start Last Admin Trade Name Freq PRN Reason Stop Dose Admin Lorazepam 1 mg 10/10/19 11:06 10/10/19 11:33 Ativan IVPUSH 10/10/19 11:07 1 mg ONETIME ONE Administration Ondansetron HCl 4 mg 10/10/19 11:06 10/10/19 11:30 Zofran IVPUSH 10/10/19 11:07 4 mg ONETIME ONE Administration Departure - Departure Time of Disposition: 11:59 Disposition: DC/Tfer to Inpt Rehab Fac 62 Condition: Fair Clinical Impression: Alcohol abuse Alcohol withdrawal syndrome Qualifiers: Complication of substance-induced condition: uncomplicated Qualified Code(s): F10.230 - Alcohol dependence with withdrawal, uncomplicated - Discharge Information Instructions: Alcohol Use Disorder Referrals: PCP,None [Primary Care Provider] - Forms: ED Department Discharge Additional Instructions: Please report to [facility] for further treatment Sepsis Event Note (ED) - Focused Exam Vital Signs: Vital Signs Temp Pulse Resp BP Pulse Ox 10/10/19 11:53 74 12 141/100 H 99 10/10/19 11:13 97.4 F 72 14 164/119 H 96 10/10/19 11:00 97.4 F 72 14 164/119 H 96 - My Orders Last 24 Hours: My Active Orders 10/10/19 11:06 Sodium Chloride 0.9% [Saline Flush] 10 ml FLUSH ASDIRECTED PRN Peripheral IV Insertion Adult [OM.PC] Urgent 10/10/19 11:07 Peripheral IV Care [RC] . DIRECTED 10/10/19 11:45 MVI, Adult with Vitamin K [Infuvite Adult] 10 ml Thiamine [Vitamin B-1] 200 mg Folic Acid 1 mg Magnesium Sulfate [Magnesium Sulfate 50%] 2 gm Dextrose 5%- Lactated Ringers 1,000 ml IV ONETIME - Assessment/Plan Last 24 Hours: My Active Orders 10/10/19 11:06 Sodium Chloride 0.9% [Saline Flush] 10 ml FLUSH ASDIRECTED PRN Peripheral IV Insertion Adult [OM.PC] Urgent 10/10/19 11:07 Peripheral IV Care [RC] . DIRECTED 10/10/19 11:45 MVI, Adult with Vitamin K [Infuvite Adult] 10 ml Thiamine [Vitamin B-1] 200 mg Folic Acid 1 mg Magnesium Sulfate [Magnesium Sulfate 50%] 2 gm Dextrose 5%- Lactated Ringers 1,000 ml IV ONETIME Plan: Assessment Acuity = acute Site and laterality = alcohol abuse and intoxication Etiology = EtOH Manifestations = none Location of injury = Home Lab values = CBC, CMP, INR, urine drug screen, alcohol within normal limits Plan He was given a banana bag as well as Zofran and Ativan while in the emergency department [facility] did have a bed for him he will be transported via [facility] for detoxification This note was dictated using [employer] voice recognition software please call with any questions on syntax or grammar.
[2019-10-10 11:54] VITALS: PULSE 74
[2019-10-10 12:48] VITALS: BP 138/100
== END 2019-10-10 12:48 ==
LOC: JP.ED 10:59
DX: F10.230 Alcohol dependence with withdrawal, uncomplicated (principal); I25.10 Atherosclerotic heart disease of native coronary artery without angina pectoris; I10 Essential (primary) hypertension; I25.2 Old myocardial infarction; M19.90 Unspecified osteoarthritis, unspecified site; F32.9 Major depressive disorder, single episode, unspecified; G62.9 Polyneuropathy, unspecified; Z79.02 Long term (current) use of antithrombotics/antiplatelets; Z79.899 Other long term (current) drug therapy
CPT/HCPCS: 36415; 80053; 80305; 80307; 85025; 85610; 96374; 96375; 99285; J2060; J2405; J3411; J3475; J7121; J3490

== ENCOUNTER 2019-11-19 07:13 | Emergency (ER) | payer MEDICAID ==
--- NOTE | 2019-11-19 07:54 | EDM.PDOCBH ---
ED HPI GENERAL MEDICAL PROBLEM - General Chief Complaint: Drug or Alcohol Abuse Stated Complaint: [facility] Time Seen by Provider: 11/19/19 07:30 Source of Information: Reports: Patient, EMS History Limitations: Reports: Intoxication - History of Present Illness INITIAL COMMENTS - FREE TEXT/NARRATIVE: 59-year-old male with longstanding alcoholism, numerous visits to the emergency room for "detox". He has been drinking for the past 5 days, and this morning he felt more hung over than usual and realized he had been chain smoking cigarettes for several days and became anxious so called the ambulance to go to detox. His last drink was midnight last night. He did not take his morning medications. Onset: Unknown/Unsure Associated Symptoms: Reports: Headaches, Malaise. Denies: Confusion, Chest Pain, Cough, Shortness of Breath - Related Data Allergies Allergy/AdvReac Type Severity Reaction Status Date / Time No Known Allergies Allergy Verified 11/19/19 07:24 Home Meds: Home Meds Metoprolol Succinate [Toprol XL] 50 mg PO DAILY 11/18/15 [History] Clopidogrel [Plavix] 75 mg PO DAILY 08/23/19 [History] atorvaSTATin [Lipitor] 40 mg PO DAILY 08/23/19 [History] lisinopriL [Lisinopril] 40 mg PO DAILY 08/23/19 [History] Gabapentin [Neurontin] 1 tab PO DAILY 11/19/19 [History] Past Medical History HEENT History: Reports: Impaired Vision Cardiovascular History: Reports: CAD, Hypertension, [place] Musculoskeletal History: Reports: Arthritis, Fracture Neurological History: Reports: Neuropathy, Peripheral Psychiatric History: Reports: Addiction, Depression Other Psychiatric History: Alcohol addiction - Infectious Disease History Infectious Disease History: Reports: Chicken Pox, Mumps - Past Surgical History HEENT Surgical History: Reports: Tonsillectomy Cardiovascular Surgical History: Reports: None Neurological Surgical History: Reports: None Musculoskeletal Surgical History: Reports: Arthroscopic Knee, ORIF, Other (See Below) Other Musculoskeletal Surgeries/Procedures:: ORIF left ankle Social & Family History - Tobacco Use Smoking Status *Q: Current Every Day Smoker Years of Tobacco use: 40 Packs/Tins Daily: 0.5 - Caffeine Use Caffeine Use: Reports: Coffee, Soda, Tea - Recreational Drug Use Recreational Drug Type: Reports: Marijuana/Hashish, Methamphetamine Recreational Drug Use Frequency: Rarely ED ROS GENERAL - Review of Systems Review Of Systems: See Below Constitutional: Reports: Malaise. Denies: Fever, Chills HEENT: Denies: Vision Change Respiratory: Reports: Cough (Has a smoker's cough). Denies: Hemoptysis Cardiovascular: Denies: Chest Pain, Palpitations GI/Abdominal: Denies: Abdominal Pain, Vomiting Skin: Reports: No Symptoms Neurological: Reports: Headache ED EXAM, BEHAVIORAL HEALTH - Physical Exam Exam: See Below Exam Limited By: No Limitations General Appearance: Alert, No Apparent Distress Eye Exam: Bilateral Eye: Normal Inspection (No jaundice, adequate hydration) Head: Atraumatic Respiratory/Chest: No Respiratory Distress, Lungs Clear Cardiovascular: Regular Rate, Rhythm. No: Extra Beats GI/Abdominal: Non-Tender Extremities: No: Pedal Edema Neurological: Alert, Normal Mood/Affect Psychiatric: Alert, Normal Affect Skin Exam: Warm, Dry COURSE, BEHAVIORAL HEALTH COMP - Course Vital Signs: Last Vital Signs Temp 97.4 F 11/19/19 07:33 Pulse 75 11/19/19 11:17 Resp 16 11/19/19 07:33 BP 177/103 H 11/19/19 11:17 Pulse Ox 97 11/19/19 07:33 Orders, Labs, Meds: Laboratory Tests 11/19/19 11/19/19 11/19/19 Range/Units 07:45 07:45 07:45 WBC 5.6 (4.5-11.0) K/uL RBC 4.85 (4.30-5.90) M/uL Hgb 15.5 H (12.0-15.0) g/dL Hct 44.9 (40.0-54.0) % MCV 93 (80-98) fL MCH 32 H (27-31) pg MCHC 35 (32-36) % Plt Count 249 (150-400) K/uL Neut % (Auto) 72 H (36-66) % Lymph % (Auto) 16 L (24-44) % Mcdowell % (Auto) 11 H (2-6) % Eos % (Auto) 1 L (2-4) % Baso % (Auto) 1 (0-1) % Sodium 147 (140-148) mmol/L Potassium 4.1 (3.6-5.2) mmol/L Chloride 108 (100-108) mmol/L Carbon Dioxide 25 (21-32) mmol/L Anion Gap 13.6 (5.0-14.0) mmol/L BUN 11 (7-18) mg/dL Creatinine 1.3 (0.8-1.3) mg/dL Est Cr Clr Drug Dosing 58.46 mL/min Estimated GFR (MDRD) 56 L (>60) Glucose 117 H (74-106) mg/dL Calcium 8.1 L (8.5-10.1) mg/dL Urine Opiates Screen (NEGATIVE) Ur Oxycodone Screen (NEGATIVE) Urine Methadone Screen (NEGATIVE) Ur Propoxyphene Screen (NEGATIVE) Ur Barbiturates Screen (NEGATIVE) Ur Tricyclics Screen (NEGATIVE) Ur Phencyclidine Scrn (NEGATIVE) Ur Amphetamine Screen (NEGATIVE) U Methamphetamines Scrn (NEGATIVE) Urine MDMA Screen (NEGATIVE) U Benzodiazepines Scrn (NEGATIVE) U Cocaine Metab Screen (NEGATIVE) U Marijuana (THC) Screen (NEGATIVE) Ethyl Alcohol 109 mg/dL 11/19/19 Range/Units 08:05 WBC (4.5-11.0) K/uL RBC (4.30-5.90) M/uL Hgb (12.0-15.0) g/dL Hct (40.0-54.0) % MCV (80-98) fL MCH (27-31) pg MCHC (32-36) % Plt Count (150-400) K/uL Neut % (Auto) (36-66) % Lymph % (Auto) (24-44) % Mcdowell % (Auto) (2-6) % Eos % (Auto) (2-4) % Baso % (Auto) (0-1) % Sodium (140-148) mmol/L Potassium (3.6-5.2) mmol/L Chloride (100-108) mmol/L Carbon Dioxide (21-32) mmol/L Anion Gap (5.0-14.0) mmol/L BUN (7-18) mg/dL Creatinine (0.8-1.3) mg/dL Est Cr Clr Drug Dosing mL/min Estimated GFR (MDRD) (>60) Glucose (74-106) mg/dL Calcium (8.5-10.1) mg/dL Urine Opiates Screen Negative (NEGATIVE) Ur Oxycodone Screen Negative (NEGATIVE) Urine Methadone Screen Negative (NEGATIVE) Ur Propoxyphene Screen Negative (NEGATIVE) Ur Barbiturates Screen Negative (NEGATIVE) Ur Tricyclics Screen Negative (NEGATIVE) Ur Phencyclidine Scrn Negative (NEGATIVE) Ur Amphetamine Screen Negative (NEGATIVE) U Methamphetamines Scrn Negative (NEGATIVE) Urine MDMA Screen Negative (NEGATIVE) U Benzodiazepines Scrn Negative (NEGATIVE) U Cocaine Metab Screen Negative (NEGATIVE) U Marijuana (THC) Screen Presumptive positive H (NEGATIVE) Ethyl Alcohol mg/dL Medications Discontinued Medications Generic Name Dose Route Start Last Admin Trade Name Mateo PRN Reason Stop Dose Admin Labetalol HCl 20 mg 11/19/19 09:30 11/19/19 09:25 Normodyne IVPUSH 11/19/19 09:31 20 mg ONETIME ONE Administration Protocol Lisinopril 40 mg 11/19/19 11:30 11/19/19 11:16 Prinivil PO 11/19/19 11:31 40 mg ONETIME ONE Administration Lorazepam 1 mg 11/19/19 10:44 11/19/19 10:51 Ativan IVPUSH 11/19/19 10:45 1 mg ONETIME ONE Administration Metoprolol Tartrate 50 mg 11/19/19 10:59 11/19/19 11:17 Lopressor PO 11/19/19 11:00 50 mg ONETIME ONE Administration Re-Assessment/Re-Exam: Patient is hypertensive but just took his antihypertensive medications prior to calling the ambulance and that may have been the first day in a few days he has taken his meds. EtOH, CBC, BMP were drawn and IV fluids started by EMS were continued. Detox will be contacted when labs return. EtOH is 0.108, rest of his labs reassuring and patient stable to be transferred to detox. Melody Heck was contacted Prior to excepting the patient Melody Heck requested a urine drug screen as well as additional treatment for his hypertension. The drug screen was ordered and he was given 20 mg of IV labetalol. Transportation was delayed an additional hour, patient was given 50 mg of Toprol and 40 mg of the lisinopril his usual medications. Departure - Departure Time of Disposition: 12:36 Disposition: DC/Tfer to Other 70 Clinical Impression: Alcohol abuse Alcohol intoxication Qualifiers: Complication of substance-induced condition: uncomplicated Qualified Code(s): F10.920 - Alcohol use, unspecified with intoxication, uncomplicated - Discharge Information Instructions: Alcohol Intoxication, [id number] Referrals: PCP,None [Primary Care Provider] - Forms: ED Department Discharge Care Plan Goals: Participate in detox and treatment for alcoholism as recommended and avoid furt her alcohol use in the future. Sepsis Event Note (ED) - Evaluation Sepsis Screening Result: No Definite Risk - Focused Exam Vital Signs: Vital Signs Temp Pulse Pulse Resp BP BP Pulse Ox 11/19/19 11:17 75 177/103 H 11/19/19 11:16 177/103 H 11/19/19 10:40 80 194/129 H 11/19/19 09:50 77 172/107 H 11/19/19 07:33 97.4 F 93 16 194/137 H 97 11/19/19 07:30 88 189/127 H 11/19/19 07:25 97.4 F 93 16 194/137 H 97
[2019-11-19] MEDS ORDERED: Labetalol 100 MG/20 ML MDV IVPUSH ONE (09:02)
[2019-11-19] MEDS ORDERED: Labetalol 20 MG/4 ML Syringe IVPUSH ONE (09:30)
[2019-11-19] MEDS ORDERED: LORazepam 2 MG/ML SDV IVPUSH ONE (10:44)
[2019-11-19] MEDS ORDERED: Metoprolol Tartrate 50 MG Tab PO ONE (10:59)
[2019-11-19] MEDS ORDERED: Lisinopril 10 MG Tab PO ONE (10:59)
[2019-11-19 11:18] VITALS: BP 177/103; PULSE 75
[2019-11-19] MEDS ORDERED: Lisinopril 20 MG Tab PO ONE (11:30)
== END 2019-11-19 12:37 | disposition other institution (70) ==
LOC: JP.ED 07:13
DX: F10.120 Alcohol abuse with intoxication, uncomplicated (principal); Y90.5 Blood alcohol level of 100-119 mg/100 ml; I25.10 Atherosclerotic heart disease of native coronary artery without angina pectoris; I10 Essential (primary) hypertension; G62.9 Polyneuropathy, unspecified; F17.210 Nicotine dependence, cigarettes, uncomplicated; Z79.02 Long term (current) use of antithrombotics/antiplatelets; Z79.899 Other long term (current) drug therapy; I25.2 Old myocardial infarction
CPT/HCPCS: 36415; 80048; 80305; 80307; 85025; 96374; 96375; 99285; A9270; J2060; J3490

== ENCOUNTER 2020-03-26 12:40 | Emergency (ER) | payer MEDICAID ==
--- NOTE | 2020-03-26 12:49 | EDM.PDOCBH ---
ED HPI GENERAL MEDICAL PROBLEM - General Chief Complaint: Drug or Alcohol Abuse Stated Complaint: [facility] Time Seen by Provider: 03/26/20 12:40 Source of Information: Reports: Patient History Limitations: Reports: No Limitations - History of Present Illness INITIAL COMMENTS - FREE TEXT/NARRATIVE: 59-year-old male who is been drinking daily for 40+ days wants to go to detox. No other complaints. This is his fifth requested detox in the last 7 months. Onset: Unknown/Unsure (Has been drinking for weeks) Associated Symptoms: Reports: Nausea/Vomiting - Related Data Allergies Allergy/AdvReac Type Severity Reaction Status Date / Time No Known Allergies Allergy Verified 11/19/19 07:24 Home Meds: Home Meds Metoprolol Succinate [Toprol XL] 50 mg PO DAILY 11/18/15 [History] Clopidogrel [Plavix] 75 mg PO DAILY 08/23/19 [History] atorvaSTATin [Lipitor] 40 mg PO DAILY 08/23/19 [History] lisinopriL [Lisinopril] 40 mg PO DAILY 08/23/19 [History] Gabapentin [Neurontin] 1 tab PO TID 11/19/19 [History] Past Medical History HEENT History: Reports: Impaired Vision Cardiovascular History: Reports: CAD, Hypertension, [place] Musculoskeletal History: Reports: Arthritis, Fracture Neurological History: Reports: Neuropathy, Peripheral Psychiatric History: Reports: Addiction, Depression Other Psychiatric History: Alcohol addiction - Infectious Disease History Infectious Disease History: Reports: Chicken Pox, Mumps - Past Surgical History HEENT Surgical History: Reports: Tonsillectomy Cardiovascular Surgical History: Reports: None Neurological Surgical History: Reports: None Musculoskeletal Surgical History: Reports: Arthroscopic Knee, ORIF, Other (See Below) Other Musculoskeletal Surgeries/Procedures:: ORIF left ankle Social & Family History - Caffeine Use Caffeine Use: Reports: Coffee, Soda, Tea ED ROS GENERAL - Review of Systems Review Of Systems: See Below Constitutional: Reports: Malaise, Decreased Appetite. Denies: Fever, Chills HEENT: Reports: No Symptoms Respiratory: Denies: Shortness of Breath Cardiovascular: Denies: Chest Pain GI/Abdominal: Reports: Nausea, Vomiting. Denies: Abdominal Pain Skin: Reports: No Symptoms Neurological: Reports: Dizziness, Weakness. Denies: Headache ED EXAM, BEHAVIORAL HEALTH - Physical Exam Exam: See Below Exam Limited By: No Limitations General Appearance: Alert, No Apparent Distress Eye Exam: Bilateral Eye: Normal Inspection (No jaundice) Head: Atraumatic Respiratory/Chest: No Respiratory Distress, Lungs Clear, Other (Longitudinal incision over the sternum from recent surgery) Cardiovascular: Regular Rate, Rhythm Neurological: Alert, Normal Mood/Affect Psychiatric: Restless Skin Exam: Warm, Dry COURSE, BEHAVIORAL HEALTH COMP - Course Vital Signs: Last Vital Signs Temp 97.9 F 03/26/20 13:00 Pulse 91 03/26/20 13:00 Resp 16 03/26/20 13:00 BP 133/109 H 03/26/20 13:00 Pulse Ox 96 03/26/20 13:00 Orders, Labs, Meds: Laboratory Tests 03/26/20 03/26/20 Range/Units 12:53 13:41 Urine Opiates Screen Negative (NEGATIVE) Ur Oxycodone Screen Negative (NEGATIVE) Urine Methadone Screen Negative (NEGATIVE) Ur Propoxyphene Screen Negative (NEGATIVE) Ur Barbiturates Screen Negative (NEGATIVE) Ur Tricyclics Screen Negative (NEGATIVE) Ur Phencyclidine Scrn Negative (NEGATIVE) Ur Amphetamine Screen Negative (NEGATIVE) U Methamphetamines Scrn Presumptive positive H (NEGATIVE) Urine MDMA Screen Negative (NEGATIVE) U Benzodiazepines Scrn Negative (NEGATIVE) U Cocaine Metab Screen Negative (NEGATIVE) U Marijuana (THC) Screen Presumptive positive H (NEGATIVE) Ethyl Alcohol 30 mg/dL Re-Assessment/Re-Exam: EtOH is 0.04, urine tox screen is positive for methamphetamine. He is stable for detox. Departure - Departure Time of Disposition: 16:25 Disposition: DC/Tfer to Other 70 Clinical Impression: Methamphetamine abuse Alcohol addiction Qualifiers: Substance use status: uncomplicated Qualified Code(s): F10.20 - Alcohol dependence, uncomplicated - Discharge Information Instructions: Alcohol Abuse and Dependence Information, Adult, Methamphetamines Use Disorder Referrals: PCP,None [Primary Care Provider] - Forms: ED Department Discharge Care Plan Goals: Patient be transferred to [facility] for initiation of treatment for polysubstance abuse. Sepsis Event Note (ED) - Focused Exam Vital Signs: Vital Signs Temp Pulse Resp BP Pulse Ox 03/26/20 13:00 97.9 F 91 16 133/109 H 96
[2020-03-26 13:01] VITALS: BP 133/109; PULSE 91
== END 2020-03-26 16:23 | disposition other institution (70) ==
LOC: JP.ED 12:40
DX: F10.20 Alcohol dependence, uncomplicated (principal); F15.10 Other stimulant abuse, uncomplicated; Y90.1 Blood alcohol level of 20-39 mg/100 ml; I25.10 Atherosclerotic heart disease of native coronary artery without angina pectoris; I10 Essential (primary) hypertension; I25.2 Old myocardial infarction; G62.9 Polyneuropathy, unspecified; F32.9 Major depressive disorder, single episode, unspecified; Z79.02 Long term (current) use of antithrombotics/antiplatelets; Z79.899 Other long term (current) drug therapy
CPT/HCPCS: 36415; 80305-QW; 80307; 99285

== ENCOUNTER 2020-06-20 15:50 | Emergency (ER) | payer MEDICAID ==
[~2020-06-20 15:50] MED LIST: Gabapentin 300 MG Cap PO SCH; Lisinopril 20 MG Tab PO SCH; Metoprolol Succinate 50 MG Tab.ER PO SCH; Warfarin 2.5 MG Tab PO SCH
[2020-06-20] MEDS ORDERED: Metoprolol Succinate 50 MG Tab.ER PO ONE (16:13)
[2020-06-20] MEDS ORDERED: Lisinopril 10 MG Tab PO ONE (16:13)
[2020-06-20] MEDS ORDERED: Sodium Chloride 0.9% 1,000 ML IV SCH (16:45)
--- NOTE | 2020-06-20 16:49 | EDM.PDOCBH ---
ED HPI GENERAL MEDICAL PROBLEM - General Chief Complaint: Drug or Alcohol Abuse Stated Complaint: MEDICAL VIA [facility] Time Seen by Provider: 06/20/20 15:55 Source of Information: Reports: Patient History Limitations: Reports: No Limitations - History of Present Illness INITIAL COMMENTS - FREE TEXT/NARRATIVE: pt drank until about 3 am last nite. He states he is hypersensitive to the etoh and gets drunk with very little etoh. Onset: Gradual Duration: Hour(s): Location: Reports: Generalized, Other (pt is out odf his meds and his bp is elevated. ) Associated Symptoms: Reports: Other (pt has not been eating and drinking normally. ) - Related Data Allergies Allergy/AdvReac Type Severity Reaction Status Date / Time No Known Allergies Allergy Verified 06/20/20 16:06 Home Meds: Home Meds Metoprolol Succinate [Toprol XL] 50 mg PO DAILY 11/18/15 [History] atorvaSTATin [Lipitor] 40 mg PO DAILY 08/23/19 [History] lisinopriL [Lisinopril] 40 mg PO DAILY 08/23/19 [History] Gabapentin [Neurontin] 1 tab PO TID 11/19/19 [History] Warfarin Sodium [Jantoven] 2.5 mg PO DAILY 06/20/20 [History] Past Medical History HEENT History: Reports: Impaired Vision Cardiovascular History: Reports: CAD, Hypertension, [place], Stents Musculoskeletal History: Reports: Arthritis, Fracture Neurological History: Reports: Neuropathy, Peripheral Psychiatric History: Reports: Addiction, Depression Other Psychiatric History: Alcohol addiction Endocrine/Metabolic History: Reports: Obesity/BMI 30+ Hematologic History: Reports: Anticoagulation Therapy - Infectious Disease History Infectious Disease History: Reports: Chicken Pox, Mumps - Past Surgical History Head Surgeries/Procedures: Reports: None HEENT Surgical History: Reports: Tonsillectomy Other HEENT Surgeries/Procedures: tooth extraction Cardiovascular Surgical History: Reports: None Endocrine Surgical History: Reports: None Neurological Surgical History: Reports: None Musculoskeletal Surgical History: Reports: Arthroscopic Knee, ORIF, Other (See Below) Other Musculoskeletal Surgeries/Procedures:: ORIF left ankle Dermatological Surgical History: Reports: None Social & Family History - Family History Family Medical History: No Pertinent Family History - Tobacco Use Tobacco Use Status *Q: Current Every Day Tobacco User Years of Tobacco use: 45 Packs/Tins Daily: 1 Used Tobacco, but Quit: No Second Hand Smoke Exposure: No - Caffeine Use Caffeine Use: Reports: Coffee, Soda, Tea - Alcohol Use Days Per Week of Alcohol Use: 7 Number of Drinks Per Day: 3 Total Drinks Per Week: 21 - Recreational Drug Use Recreational Drug Use: Yes Drug Use in Last 12 Months: No Recreational Drug Type: Reports: Methamphetamine ED ROS GENERAL - Review of Systems Review Of Systems: See Below Constitutional: Reports: No Symptoms HEENT: Reports: No Symptoms Respiratory: Reports: No Symptoms Cardiovascular: Reports: No Symptoms Endocrine: Reports: No Symptoms GI/Abdominal: Reports: Nausea : Reports: No Symptoms Musculoskeletal: Reports: No Symptoms Skin: Reports: No Symptoms Neurological: Reports: No Symptoms, Other (pt feels like her bp is elevated. ) ED EXAM, BEHAVIORAL HEALTH - Physical Exam Exam: See Below Text/Narrative:: pt arrived with a history of etoh abuse and he has been out of his nmeds. His bp is elevated. He has not had meds for 3 days. Exam Limited By: No Limitations General Appearance: Alert, No Apparent Distress, Anxious, Other (pupils are equal and reactive. ) Ears: Normal TMs Nose: Normal Inspection Throat/Mouth: Normal Inspection Head: Atraumatic Neck: Normal Inspection Respiratory/Chest: No Respiratory Distress Cardiovascular: Regular Rate, Rhythm GI/Abdominal: Soft, Non-Tender (Male) Exam: Deferred Rectal (Males) Exam: Deferred Back Exam: Normal Inspection Extremities: Normal Inspection COURSE, BEHAVIORAL HEALTH COMP - Course Vital Signs: Last Vital Signs Temp 36.6 C 06/20/20 16:11 Pulse 66 06/20/20 20:08 Resp 16 06/20/20 20:08 BP 129/88 06/20/20 20:08 Pulse Ox 97 06/20/20 20:08 Orders, Labs, Meds: Laboratory Tests 06/20/20 06/20/20 06/20/20 Range/Units 16:00 16:00 16:02 WBC 6.6 (4.5-11.0) K/uL RBC 5.02 (4.30-5.90) M/uL Hgb 16.2 H (12.0-15.0) g/dL Hct 47.0 (40.0-54.0) % MCV 94 (80-98) fL MCH 32 H (27-31) pg MCHC 35 (32-36) % Plt Count 281 (150-400) K/uL Neut % (Auto) 73 H (36-66) % Lymph % (Auto) 14 L (24-44) % [place] % (Auto) 11 H (2-6) % Eos % (Auto) 1 L (2-4) % Baso % (Auto) 1 (0-1) % PT (9.5-12.0) sec INR (0.80-1.20) Sodium (140-148) mmol/L Potassium (3.6-5.2) mmol/L Chloride (100-108) mmol/L Carbon Dioxide (21-32) mmol/L Anion Gap (5.0-14.0) mmol/L BUN (7-18) mg/dL Creatinine (0.8-1.3) mg/dL Est Cr Clr Drug Dosing mL/min Estimated GFR (MDRD) (>60) Glucose (74-106) mg/dL Calcium (8.5-10.1) mg/dL Total Bilirubin (0.2-1.0) mg/dL AST (15-37) U/L ALT (12-78) U/L Alkaline Phosphatase (46-116) U/L Total Protein (6.4-8.2) g/dL Albumin (3.4-5.0) g/dL Globulin (2.3-3.5) g/dL Albumin/Globulin Ratio (1.2-2.2) Urine Color Yellow (YELLOW) Urine Appearance Slightly cloudy A (CLEAR) Urine pH 5.5 (5.0-8.0) Ur Specific [place] >= 1.030 (1.008-1.030) Urine Protein 100 H (NEGATIVE) mg/dL Urine Glucose (UA) Negative (NEGATIVE) mg/dL Urine Ketones Negative (NEGATIVE) mg/dL Urine Occult Blood Trace-intact H (NEGATIVE) Urine Nitrite Negative (NEGATIVE) Urine Bilirubin Negative (NEGATIVE) Urine Urobilinogen 0.2 (0.2-1.0) EU/dL Ur Leukocyte Esterase Negative (NEGATIVE) Urine RBC 0-5 (0-5) Urine WBC 0-5 (0-5) Ur Epithelial Cells Rare Amorphous Sediment Not seen Urine Bacteria Not seen Urine Mucus Moderate Urine Opiates Screen Negative (NEGATIVE) Ur Oxycodone Screen Negative (NEGATIVE) Urine Methadone Screen Negative (NEGATIVE) Ur Propoxyphene Screen Negative (NEGATIVE) Ur Barbiturates Screen Negative (NEGATIVE) Ur Tricyclics Screen Negative (NEGATIVE) Ur Phencyclidine Scrn Negative (NEGATIVE) Ur Amphetamine Screen Negative (NEGATIVE) U Methamphetamines Scrn Negative (NEGATIVE) Urine MDMA Screen Negative (NEGATIVE) U Benzodiazepines Scrn Negative (NEGATIVE) U Cocaine Metab Screen Negative (NEGATIVE) U Marijuana (THC) Screen Negative (NEGATIVE) Ethyl Alcohol mg/dL SARS CoV-2 RNA Rapid JENNY 06/20/20 06/20/20 06/20/20 Range/Units 16:02 16:02 16:12 WBC (4.5-11.0) K/uL RBC (4.30-5.90) M/uL Hgb (12.0-15.0) g/dL Hct (40.0-54.0) % MCV (80-98) fL MCH (27-31) pg MCHC (32-36) % Plt Count (150-400) K/uL Neut % (Auto) (36-66) % Lymph % (Auto) (24-44) % [place] % (Auto) (2-6) % Eos % (Auto) (2-4) % Baso % (Auto) (0-1) % PT 15.8 H (9.5-12.0) sec INR 1.46 H (0.80-1.20) Sodium 147 (140-148) mmol/L Potassium 4.0 (3.6-5.2) mmol/L Chloride 109 H (100-108) mmol/L Carbon Dioxide 24 (21-32) mmol/L Anion Gap 18.0 H (5.0-14.0) mmol/L BUN 8 (7-18) mg/dL Creatinine 1.0 (0.8-1.3) mg/dL Est Cr Clr Drug Dosing 76.00 mL/min Estimated GFR (MDRD) > 60 (>60) Glucose 101 (74-106) mg/dL Calcium 9.2 (8.5-10.1) mg/dL Total Bilirubin 0.3 (0.2-1.0) mg/dL AST 19 (15-37) U/L ALT 24 (12-78) U/L Alkaline Phosphatase 127 H (46-116) U/L Total Protein 7.6 (6.4-8.2) g/dL Albumin 4.1 (3.4-5.0) g/dL Globulin 3.5 (2.3-3.5) g/dL Albumin/Globulin Ratio 1.2 (1.2-2.2) Urine Color (YELLOW) Urine Appearance (CLEAR) Urine pH (5.0-8.0) Ur Specific [place] (1.008-1.030) Urine Protein (NEGATIVE) mg/dL Urine Glucose (UA) (NEGATIVE) mg/dL Urine Ketones (NEGATIVE) mg/dL Urine Occult Blood (NEGATIVE) Urine Nitrite (NEGATIVE) Urine Bilirubin (NEGATIVE) Urine Urobilinogen (0.2-1.0) EU/dL Ur Leukocyte Esterase (NEGATIVE) Urine RBC (0-5) Urine WBC (0-5) Ur Epithelial Cells Amorphous Sediment Urine Bacteria Urine Mucus Urine Opiates Screen (NEGATIVE) Ur Oxycodone Screen (NEGATIVE) Urine Methadone Screen (NEGATIVE) Ur Propoxyphene Screen (NEGATIVE) Ur Barbiturates Screen (NEGATIVE) Ur Tricyclics Screen (NEGATIVE) Ur Phencyclidine Scrn (NEGATIVE) Ur Amphetamine Screen (NEGATIVE) U Methamphetamines Scrn (NEGATIVE) Urine MDMA Screen (NEGATIVE) U Benzodiazepines Scrn (NEGATIVE) U Cocaine Metab Screen (NEGATIVE) U Marijuana (THC) Screen (NEGATIVE) Ethyl Alcohol 3 mg/dL SARS CoV-2 RNA Rapid JENNY 06/20/20 Range/Units 17:21 WBC (4.5-11.0) K/uL RBC (4.30-5.90) M/uL Hgb (12.0-15.0) g/dL Hct (40.0-54.0) % MCV (80-98) fL MCH (27-31) pg MCHC (32-36) % Plt Count (150-400) K/uL Neut % (Auto) (36-66) % Lymph % (Auto) (24-44) % [place] % (Auto) (2-6) % Eos % (Auto) (2-4) % Baso % (Auto) (0-1) % PT (9.5-12.0) sec INR (0.80-1.20) Sodium (140-148) mmol/L Potassium (3.6-5.2) mmol/L Chloride (100-108) mmol/L Carbon Dioxide (21-32) mmol/L Anion Gap (5.0-14.0) mmol/L BUN (7-18) mg/dL Creatinine (0.8-1.3) mg/dL Est Cr Clr Drug Dosing mL/min Estimated GFR (MDRD) (>60) Glucose (74-106) mg/dL Calcium (8.5-10.1) mg/dL Total Bilirubin (0.2-1.0) mg/dL AST (15-37) U/L ALT (12-78) U/L Alkaline Phosphatase (46-116) U/L Total Protein (6.4-8.2) g/dL Albumin (3.4-5.0) g/dL Globulin (2.3-3.5) g/dL Albumin/Globulin Ratio (1.2-2.2) Urine Color (YELLOW) Urine Appearance (CLEAR) Urine pH (5.0-8.0) Ur Specific [place] (1.008-1.030) Urine Protein (NEGATIVE) mg/dL Urine Glucose (UA) (NEGATIVE) mg/dL Urine Ketones (NEGATIVE) mg/dL Urine Occult Blood (NEGATIVE) Urine Nitrite (NEGATIVE) Urine Bilirubin (NEGATIVE) Urine Urobilinogen (0.2-1.0) EU/dL Ur Leukocyte Esterase (NEGATIVE) Urine RBC (0-5) Urine WBC (0-5) Ur Epithelial Cells Amorphous Sediment Urine Bacteria Urine Mucus Urine Opiates Screen (NEGATIVE) Ur Oxycodone Screen (NEGATIVE) Urine Methadone Screen (NEGATIVE) Ur Propoxyphene Screen (NEGATIVE) Ur Barbiturates Screen (NEGATIVE) Ur Tricyclics Screen (NEGATIVE) Ur Phencyclidine Scrn (NEGATIVE) Ur Amphetamine Screen (NEGATIVE) U Methamphetamines Scrn (NEGATIVE) Urine MDMA Screen (NEGATIVE) U Benzodiazepines Scrn (NEGATIVE) U Cocaine Metab Screen (NEGATIVE) U Marijuana (THC) Screen (NEGATIVE) Ethyl Alcohol mg/dL SARS CoV-2 RNA Rapid JENNY Negative Medications Discontinued Medications Generic Name Dose Route Start Last Admin Trade Name Freq PRN Reason Stop Dose Admin Gabapentin 300 mg 06/20/20 17:51 06/20/20 17:59 Gabapentin 300 Mg Cap PO 06/20/20 17:52 300 mg ONETIME ONE Administration Gabapentin 300 mg 06/20/20 00:00 Gabapentin 300 Mg Cap PO 06/22/20 23:59 TID Sodium Chloride 1,000 mls @ 999 mls/hr 06/20/20 16:45 06/20/20 16:47 Normal Saline IV 999 mls/hr ASDIRECTED GINNA Administration Lisinopril 40 mg 06/20/20 17:00 06/20/20 16:45 Lisinopril 20 Mg Tab PO 06/20/20 17:01 40 mg ONETIME ONE Administration Lisinopril 40 mg 06/20/20 00:00 Lisinopril 20 Mg Tab PO 06/22/20 23:59 DAILY Lorazepam 1 mg 06/20/20 17:50 06/20/20 17:59 Lorazepam 2 Mg/Ml Sdv IVPUSH 06/20/20 17:51 1 mg ONETIME ONE Administration Lorazepam 1 mg 06/20/20 19:00 Lorazepam 2 Mg/Ml Sdv IM 06/20/20 19:01 ONETIME ONE Lorazepam 1 mg 06/20/20 19:24 06/20/20 19:15 Lorazepam 2 Mg/Ml Sdv IVPUSH 06/20/20 19:25 1 mg ONETIME ONE Administration Metoprolol Succinate 50 mg 06/20/20 16:13 06/20/20 16:42 Metoprolol Succinate 50 Mg Tab.Er PO 06/20/20 16:14 50 mg ONETIME ONE Administration Metoprolol Succinate 50 mg 06/20/20 00:00 Metoprolol Succinate 50 Mg Tab.Er PO 06/22/20 23:59 DAILY Warfarin Sodium 2.5 mg 06/20/20 00:00 Warfarin 2.5 Mg Tab PO 06/22/20 23:59 DAILY@1300 Medical Clearance: 06/20/20 16:49 pt was given his bp meds, he was given a liter of fluid. he is cleard to go to detox. Departure - Departure Time of Disposition: 20:50 Disposition: DC/Tfer to [facility]Unit 65 Condition: Fair Clinical Impression: ETOH abuse, Hypertension - Discharge Information Referrals: PCP,None [Primary Care Provider] - Forms: ED Department Discharge Care Plan Goals: transfer to detox. perscriptions given to the pt. Sepsis Event Note (ED) - Evaluation Sepsis Screening Result: No Definite Risk
[2020-06-20] MEDS ORDERED: Lisinopril 20 MG Tab PO ONE (17:00)
[2020-06-20] MEDS ORDERED: LORazepam 2 MG/ML SDV IVPUSH ONE ×2 (17:50→19:24)
[2020-06-20] MEDS ORDERED: Gabapentin 300 MG Cap PO ONE (17:51)
[2020-06-20] MEDS ORDERED: LORazepam 2 MG/ML SDV IM ONE (19:00)
[2020-06-20 20:08] VITALS: BP 129/88; PULSE 66
== END 2020-06-20 20:49 ==
LOC: JP.ED 15:50
DX: I10 Essential (primary) hypertension (principal); F10.10 Alcohol abuse, uncomplicated; I25.10 Atherosclerotic heart disease of native coronary artery without angina pectoris; I25.2 Old myocardial infarction; E66.9 Obesity, unspecified; Z68.32 Body mass index [BMI] 32.0-32.9, adult; Y90.0 Blood alcohol level of less than 20 mg/100 ml; Z72.0 Tobacco use; Z79.01 Long term (current) use of anticoagulants; Z79.899 Other long term (current) drug therapy; Z20.822 Contact with and (suspected) exposure to COVID-19
CPT/HCPCS: 36415; 80053; 80305; 80307; 81001; 85025; 85610; 87635; 96374; 96376; 99283; 99285; A9270; J2060; J7030; U0002

== ENCOUNTER 2020-07-03 23:33 | Emergency (ER) | payer MEDICAID ==
[2020-07-03 23:51] VITALS: BP 133/98
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
== END 2020-07-04 02:12 | disposition other institution (70) ==
LOC: JP.ED 23:33
DX: F10.220 Alcohol dependence with intoxication, uncomplicated (principal); I48.91 Unspecified atrial fibrillation; I25.10 Atherosclerotic heart disease of native coronary artery without angina pectoris; I10 Essential (primary) hypertension; I25.2 Old myocardial infarction; M19.90 Unspecified osteoarthritis, unspecified site; E66.9 Obesity, unspecified; Z68.32 Body mass index [BMI] 32.0-32.9, adult; Y90.6 Blood alcohol level of 120-199 mg/100 ml; Z20.822 Contact with and (suspected) exposure to COVID-19; Z79.01 Long term (current) use of anticoagulants; Z79.82 Long term (current) use of aspirin; Z79.899 Other long term (current) drug therapy
CPT/HCPCS: 36415; 80053; 80305-QW; 80307; 85610; 99283; 99284; U0002

== ENCOUNTER 2020-07-16 18:58 | Emergency (ER) | payer MEDICAID ==
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
[2020-07-16 19:17] VITALS: PULSE 50
[2020-07-16] MEDS ORDERED: Phytonadione 5 MG Tab PO ONE (19:54)
[2020-07-16] MEDS ORDERED: amLODIPine 5 MG Tab PO ONE (20:19)
[2020-07-16] MEDS ORDERED: hydrALAZINE 25 MG Tab PO STA (21:39)
[2020-07-17] MEDS ORDERED: hydrALAZINE 25 MG Tab PO STA (00:09)
[2020-07-17 03:09] VITALS: BP 128/100
== END 2020-07-17 04:55 | disposition other institution (70) ==
LOC: JP.ED 18:58
DX: F10.230 Alcohol dependence with withdrawal, uncomplicated (principal); I10 Essential (primary) hypertension; F15.90 Other stimulant use, unspecified, uncomplicated; F10.229 Alcohol dependence with intoxication, unspecified; I48.91 Unspecified atrial fibrillation; I25.10 Atherosclerotic heart disease of native coronary artery without angina pectoris; I25.2 Old myocardial infarction; M19.90 Unspecified osteoarthritis, unspecified site; E66.9 Obesity, unspecified; Z68.32 Body mass index [BMI] 32.0-32.9, adult; Y90.3 Blood alcohol level of 60-79 mg/100 ml; Z79.82 Long term (current) use of aspirin; Z79.899 Other long term (current) drug therapy; Z79.01 Long term (current) use of anticoagulants; Z20.822 Contact with and (suspected) exposure to COVID-19
CPT/HCPCS: 36415; 80053; 80305; 80307; 83690; 85027; 85610; 87635; 99285; A9270; U0002

== ENCOUNTER 2020-10-09 13:49 | Emergency (ER) | payer MEDICAID ==
[2020-10-09 13:52] VITALS: BP 153/109; PULSE 79
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
[2020-10-09] MEDS ORDERED: Phytonadione 5 MG Tab PO ONE (15:27)
== END 2020-10-09 18:24 | disposition other institution (70) ==
LOC: JP.ED 13:49
DX: F10.120 Alcohol abuse with intoxication, uncomplicated (principal); R79.1 Abnormal coagulation profile; I48.91 Unspecified atrial fibrillation; I25.10 Atherosclerotic heart disease of native coronary artery without angina pectoris; I10 Essential (primary) hypertension; M19.90 Unspecified osteoarthritis, unspecified site; E66.9 Obesity, unspecified; Z68.45 Body mass index [BMI] 70 or greater, adult; Z79.01 Long term (current) use of anticoagulants; Z72.0 Tobacco use; Z79.82 Long term (current) use of aspirin; Z79.899 Other long term (current) drug therapy; Z20.822 Contact with and (suspected) exposure to COVID-19
CPT/HCPCS: 36415; 80305; 80307; 85610; 87635; 99284; A9270; U0002

== ENCOUNTER 2020-11-26 12:19 | Emergency (ER) | payer MEDICAID ==
[2020-11-26] MEDS ORDERED: Ondansetron 4 MG Tab.DIS PO ONE (12:29)
[2020-11-26] MEDS ORDERED: Thiamine 100 MG Tab PO ONE (12:32)
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
[2020-11-26] MEDS ORDERED: Phytonadione 5 MG Tab PO ONE (13:51)
[2020-11-26 15:32] VITALS: PULSE 77
[2020-11-26] MEDS ORDERED: Metoprolol Tartrate 50 MG Tab PO ONE (15:34)
[2020-11-26] MEDS ORDERED: LORazepam 1 MG Tab PO ONE (15:34)
[2020-11-26] MEDS ORDERED: Lisinopril 10 MG Tab PO ONE (16:17)
[2020-11-26 17:03] VITALS: BP 166/125
== END 2020-11-26 17:59 | disposition other institution (70) ==
LOC: JP.ED 12:19
DX: F10.10 Alcohol abuse, uncomplicated (principal); Y90.3 Blood alcohol level of 60-79 mg/100 ml; I48.91 Unspecified atrial fibrillation; I25.10 Atherosclerotic heart disease of native coronary artery without angina pectoris; I10 Essential (primary) hypertension; I25.2 Old myocardial infarction; M19.90 Unspecified osteoarthritis, unspecified site; E66.9 Obesity, unspecified; Z68.33 Body mass index [BMI] 33.0-33.9, adult; Z79.01 Long term (current) use of anticoagulants; Z79.82 Long term (current) use of aspirin; Z79.899 Other long term (current) drug therapy; Z20.822 Contact with and (suspected) exposure to COVID-19
CPT/HCPCS: 36415; 80048; 80305; 80307; 81001; 85027; 85610; 87635; 99284; A9270; U0002

== ENCOUNTER 2021-03-19 17:57 | Emergency (ER) | payer MEDICAID ==
[2021-03-19] MEDS ORDERED: Metoprolol Succinate 50 MG Tab.ER PO ONE (19:11)
[2021-03-19] MEDS ORDERED: Lisinopril 20 MG Tab PO STA (19:11)
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
[2021-03-19 19:49] VITALS: PULSE 94
[2021-03-19 20:29] VITALS: BP 161/115
== END 2021-03-19 21:32 | disposition other institution (70) ==
LOC: JP.ED 17:57
DX: F10.229 Alcohol dependence with intoxication, unspecified (principal); I48.91 Unspecified atrial fibrillation; I25.10 Atherosclerotic heart disease of native coronary artery without angina pectoris; I10 Essential (primary) hypertension; I25.2 Old myocardial infarction; E66.9 Obesity, unspecified; Z68.33 Body mass index [BMI] 33.0-33.9, adult; Y90.8 Blood alcohol level of 240 mg/100 ml or more; Z72.0 Tobacco use; Z79.899 Other long term (current) drug therapy; Z20.822 Contact with and (suspected) exposure to COVID-19
CPT/HCPCS: 36415; 80053; 80305; 80307; 85025; 87635; 99285; A9270; U0002

== ENCOUNTER 2021-04-09 11:39 | Emergency (ER) | payer MEDICARE, MEDICAID ==
[2021-04-09 11:43] VITALS: BP 151/108; PULSE 61
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
[2021-04-09 13:10] LABS: CORONAVIRUS COVID-19 NAA NEGATIVE (NEGATIVE)
== END 2021-04-09 14:45 | disposition home or self-care (01) ==
LOC: JP.ED 11:39
DX: F10.20 Alcohol dependence, uncomplicated (principal); I48.91 Unspecified atrial fibrillation; I25.10 Atherosclerotic heart disease of native coronary artery without angina pectoris; I10 Essential (primary) hypertension; I25.2 Old myocardial infarction; E66.9 Obesity, unspecified; Z68.31 Body mass index [BMI] 31.0-31.9, adult; Z79.899 Other long term (current) drug therapy; Z20.822 Contact with and (suspected) exposure to COVID-19; Y90.5 Blood alcohol level of 100-119 mg/100 ml
CPT/HCPCS: 0241U; 36415; 80305; 80307; 99285

== ENCOUNTER 2021-06-17 12:56 | Emergency (ER) | payer MEDICARE, MEDICAID ==
[2021-06-17 13:00] VITALS: BP 102/62; PULSE 83
[2021-06-17 14:25] LABS: CORONAVIRUS COVID-19 NAA NEGATIVE (NEGATIVE)
[2021-06-17] MEDS ORDERED: LORazepam 1 MG Tab PO ONE (15:35)
[2021-06-17] MEDS ORDERED: LORazepam 2 MG/ML SDV IM ONE (15:36)
== END 2021-06-17 16:00 | disposition home or self-care (01) ==
LOC: JP.ED 12:56
DX: F10.920 Alcohol use, unspecified with intoxication, uncomplicated (principal); I10 Essential (primary) hypertension; I25.10 Atherosclerotic heart disease of native coronary artery without angina pectoris; I25.2 Old myocardial infarction; E66.9 Obesity, unspecified; Z72.0 Tobacco use; Z79.899 Other long term (current) drug therapy; Z20.822 Contact with and (suspected) exposure to COVID-19
CPT/HCPCS: 0241U; 36415; 80305-QW; 80307; 85610; 96372; 99282; 99284; J2060

== ENCOUNTER 2021-07-12 16:53 | Emergency (ER) | payer MEDICARE, MEDICAID ==
[2021-07-12 16:56] VITALS: BP 123/81; PULSE 77
[2021-07-12 17:42] LABS: CORONAVIRUS COVID-19 NAA NEGATIVE (NEGATIVE)
== END 2021-07-12 19:55 | disposition other institution (70) ==
LOC: JP.ED 16:53
DX: F10.20 Alcohol dependence, uncomplicated (principal); I48.91 Unspecified atrial fibrillation; I25.10 Atherosclerotic heart disease of native coronary artery without angina pectoris; I10 Essential (primary) hypertension; I25.2 Old myocardial infarction; E66.9 Obesity, unspecified; Z68.31 Body mass index [BMI] 31.0-31.9, adult; Z79.899 Other long term (current) drug therapy; Z72.0 Tobacco use; Z20.822 Contact with and (suspected) exposure to COVID-19
CPT/HCPCS: 0241U; 36415; 80305-QW; 80307; 99282; 99284

== ENCOUNTER 2022-09-14 20:25 | Emergency (ER) | payer MEDICARE, MEDICAID ==
[2022-09-14] MEDS ORDERED: LORazepam 1 MG Tab PO ONE (21:08)
[2022-09-14 21:29] LABS: AMPHETAMINES SCREEN, URINE NEGATIVE (NEGATIVE); BARBITURATE SCREEN,URINE NEGATIVE (NEGATIVE); BENZODIAZEPINES SCREEN,URINE NEGATIVE (NEGATIVE); METHADONE SCREEN, URINE NEGATIVE (NEGATIVE); METHAMPHETAMINES SCREEN, URINE NEGATIVE (NEGATIVE); OXYCODONE SCREEN,URINE NEGATIVE (NEGATIVE); PROPOXYPHENE SCREEN,URINE NEGATIVE (NEGATIVE); THC SCREEN,URINE 50 NG/ML NEGATIVE (NEGATIVE)
[2022-09-14 22:12] VITALS: BP 119/81; PULSE 80
== END 2022-09-14 23:10 ==
LOC: JP.ED 20:25
DX: F10.10 Alcohol abuse, uncomplicated (principal); I48.91 Unspecified atrial fibrillation; I25.10 Atherosclerotic heart disease of native coronary artery without angina pectoris; I10 Essential (primary) hypertension; I25.2 Old myocardial infarction; E66.9 Obesity, unspecified; Z68.34 Body mass index [BMI] 34.0-34.9, adult; Z79.899 Other long term (current) drug therapy; Z79.01 Long term (current) use of anticoagulants; Z20.822 Contact with and (suspected) exposure to COVID-19
CPT/HCPCS: 36415; 80305; 80307; 99283; A9270; U0002

== ENCOUNTER 2022-10-13 07:11 | Emergency (ER) | payer MEDICARE, MEDICAID ==
[2022-10-13] MEDS ORDERED: Sodium Chloride 0.9% 1,000 ML IV SCH (07:45)
[2022-10-13 07:53] LABS: BASOPHILS ABSOLUTE AUTO 0.06 K/uL (0.00-0.10); BASOPHILS PERCENT AUTO 0.8 % (0.1-1.3); EOSINOPHILS ABSOLUTE AUTO 0.05 K/uL (0.00-0.40); EOSINOPHILS PERCENT AUTO 0.6 % (0.0-5.4); HEMATOCRIT 46.3 % (38.4-49.7); HEMOGLOBIN 16.5 g/dL (12.9-16.9); IMMATURE GRAN ABSOLUTE AUTO 0.03 K/uL (0.00-0.23); IMMATURE GRAN PERCENT AUTO 0.4 % (0.0-0.7); LYMPHOCYTES ABSOLUTE AUTO 1.06 K/uL (0.8-3.3); LYMPHOCYTES PERCENT AUTO 13.7 % (11.4-47.7); MEAN CORPUSCULAR HEMOGLOBIN 31.4 pg (31.6-35.5); MEAN CORPUSCULAR HGB CONC 35.6 g/dL (31.6-35.5); MONOCYTES ABSOLUTE AUTO 0.53 K/uL (0.20-0.90); MONOCYTES PERCENT AUTO 6.8 % (3.3-12.6); NEUTROPHILS ABSOLUTE AUTO 6.02 K/uL (1.0-7.6); NEUTROPHILS PERCENT AUTO 77.7 % (40.0-78.1); PLATELET COUNT,PLT 232 K/uL (130-375); RED BLOOD CELL COUNT 5.26 M/uL (4.14-5.76); WHITE BLOOD CELL COUNT,WBC 7.8 K/uL (3.2-11.0)
[2022-10-13 08:10] LABS: PROTHROMBIN TIME 10.5 sec (9.2-10.6)
[2022-10-13 08:14] LABS: A/G RATIO 0.9 (1.2-2.2); ALANINE AMINOTRANSFERASE,ALT 27 U/L (12-78); ALBUMIN 3.5 g/dL (3.4-5.0); ALKALINE PHOSPHATASE 122 U/L (46-116); ANION GAP 12.3 mmol/L (5.0-14.0); ASPARTATE AMNIOTRANSFERASE,AST 27 U/L (15-37); BILIRUBIN TOTAL 1.3 mg/dL (0.2-1.0); BLOOD UREA NITROGEN,BUN 13 mg/dL (7-18); CALCIUM 8.6 mg/dL (8.5-10.1); CARBON DIOXIDE,CO2 24 mmol/L (21-32); CHLORIDE,CL 104 mmol/L (100-108); EST CRCL DRUG DOSING (CG) 73.15 mL/min; ESTIMATED GFR 85 mL/min (>60); GLUCOSE RANDOM 110 mg/dL (74-106); PROTEIN TOTAL,TP 7.4 g/dL (6.4-8.2); SODIUM,NA 140 mmol/L (140-148)
[2022-10-13] MEDS ORDERED: LORazepam 1 MG Tab PO ONE (08:36)
[2022-10-13 09:02] LABS: AMPHETAMINES SCREEN, URINE NEGATIVE (NEGATIVE); BARBITURATE SCREEN,URINE NEGATIVE (NEGATIVE); BENZODIAZEPINES SCREEN,URINE PRESUMPTIVE POSITIVE (NEGATIVE); METHADONE SCREEN, URINE NEGATIVE (NEGATIVE); METHAMPHETAMINES SCREEN, URINE PRESUMPTIVE POSITIVE (NEGATIVE); OXYCODONE SCREEN,URINE NEGATIVE (NEGATIVE); PROPOXYPHENE SCREEN,URINE NEGATIVE (NEGATIVE); THC SCREEN,URINE 50 NG/ML NEGATIVE (NEGATIVE)
[2022-10-13 11:26] VITALS: BP 199/127; PULSE 92
== END 2022-10-13 11:36 | disposition other institution (70) ==
LOC: JP.ED 07:11
DX: F10.230 Alcohol dependence with withdrawal, uncomplicated (principal); I48.91 Unspecified atrial fibrillation; I25.10 Atherosclerotic heart disease of native coronary artery without angina pectoris; I10 Essential (primary) hypertension; I25.2 Old myocardial infarction; E66.9 Obesity, unspecified; F17.210 Nicotine dependence, cigarettes, uncomplicated; Z68.34 Body mass index [BMI] 34.0-34.9, adult; Z20.822 Contact with and (suspected) exposure to COVID-19; Z79.01 Long term (current) use of anticoagulants; Z79.899 Other long term (current) drug therapy
CPT/HCPCS: 36415; 80053; 80305; 80307; 85025; 85610; 96360; 99284; A9270; J7030; U0002